=== PATIENT | female | born 1950 | race Caucasian/White ===

== ENCOUNTER 2019-09-13 09:50 | Outpatient (CLI) | payer SELFPAY ==
[~2019-09-13 09:50] MED LIST: AMLO5TAB PO
== END 2019-09-13 11:13 | disposition home or self-care (01) ==
LOC: WOUND CARE 09:50 → EDSTATUS 10:00 → WOUND CARE 11:13
PROVIDERS: ATTEND Nurse Practitioner Family
DX: I83.028 Varicose veins of left lower extremity with ulcer other part of lower leg (principal)
CPT/HCPCS: 29580

== ENCOUNTER 2019-09-20 09:45 | Day surgery (SDC) | payer SELFPAY ==
[2019-09-20] MEDS ORDERED: LIDOcaine 2% 5ml jelly ONE (10:08)
== END 2019-09-20 10:56 | disposition home or self-care (01) ==
LOC: WOUND CARE 09:45
PROVIDERS: ATTEND Nurse Practitioner Family
DX: I83.022 Varicose veins of left lower extremity with ulcer of calf (principal); I70.242 Atherosclerosis of native arteries of left leg with ulceration of calf; L97.222 Non-pressure chronic ulcer of left calf with fat layer exposed; I73.00 Raynaud's syndrome without gangrene; I10 Essential (primary) hypertension; M19.90 Unspecified osteoarthritis, unspecified site; F41.9 Anxiety disorder, unspecified; F17.299 Nicotine dependence, other tobacco product, with unspecified nicotine-induced disorders
CPT/HCPCS: 97597

== ENCOUNTER 2019-09-27 09:45 | Day surgery (SDC) | payer SELFPAY ==
[2019-09-27] MEDS ORDERED: LIDOcaine 2% 5ml jelly ONE (10:27)
== END 2019-09-27 11:27 | disposition home or self-care (01) ==
LOC: WOUND CARE 09:45
PROVIDERS: ATTEND Nurse Practitioner Family
DX: I70.242 Atherosclerosis of native arteries of left leg with ulceration of calf (principal); I83.022 Varicose veins of left lower extremity with ulcer of calf; L97.222 Non-pressure chronic ulcer of left calf with fat layer exposed; I73.00 Raynaud's syndrome without gangrene; I10 Essential (primary) hypertension; M19.90 Unspecified osteoarthritis, unspecified site; F41.9 Anxiety disorder, unspecified; F17.299 Nicotine dependence, other tobacco product, with unspecified nicotine-induced disorders
CPT/HCPCS: 36416; 82948; 97597

== ENCOUNTER 2019-10-04 10:43 | Day surgery (SDC) | payer SELFPAY ==
[2019-10-04] MEDS ORDERED: LIDOcaine 2% 5ml jelly ONE ×2 (11:10→11:37)
== END 2019-10-04 11:52 | disposition home or self-care (01) ==
LOC: WOUND CARE 10:43
PROVIDERS: ATTEND Nurse Practitioner Family
DX: I83.022 Varicose veins of left lower extremity with ulcer of calf (principal); I70.242 Atherosclerosis of native arteries of left leg with ulceration of calf; L97.222 Non-pressure chronic ulcer of left calf with fat layer exposed; I73.00 Raynaud's syndrome without gangrene; I10 Essential (primary) hypertension; M19.90 Unspecified osteoarthritis, unspecified site; F41.9 Anxiety disorder, unspecified; F17.299 Nicotine dependence, other tobacco product, with unspecified nicotine-induced disorders
CPT/HCPCS: 97597

== ENCOUNTER 2019-10-11 10:07 | Day surgery (SDC) | payer SELFPAY ==
[2019-10-11] MEDS ORDERED: LIDOcaine 2% 5ml jelly ONE (10:30)
== END 2019-10-11 11:14 | disposition home or self-care (01) ==
LOC: WOUND CARE 10:07
PROVIDERS: ATTEND Nurse Practitioner Family
DX: I83.022 Varicose veins of left lower extremity with ulcer of calf (principal); I70.242 Atherosclerosis of native arteries of left leg with ulceration of calf; L97.222 Non-pressure chronic ulcer of left calf with fat layer exposed; I73.00 Raynaud's syndrome without gangrene; I10 Essential (primary) hypertension; M19.90 Unspecified osteoarthritis, unspecified site; F41.9 Anxiety disorder, unspecified; F17.299 Nicotine dependence, other tobacco product, with unspecified nicotine-induced disorders
CPT/HCPCS: 97597

== ENCOUNTER 2019-10-18 10:05 | Day surgery (SDC) | payer SELFPAY ==
[2019-10-18] MEDS ORDERED: LIDOcaine 2% 5ml jelly ONE (10:17)
== END 2019-10-18 11:09 | disposition home or self-care (01) ==
LOC: WOUND CARE 10:05
PROVIDERS: ATTEND Nurse Practitioner Family
DX: I83.022 Varicose veins of left lower extremity with ulcer of calf (principal); I70.242 Atherosclerosis of native arteries of left leg with ulceration of calf; L97.222 Non-pressure chronic ulcer of left calf with fat layer exposed; I83.028 Varicose veins of left lower extremity with ulcer other part of lower leg; L97.821 Non-pressure chronic ulcer of other part of left lower leg limited to breakdown of skin; I73.00 Raynaud's syndrome without gangrene; I10 Essential (primary) hypertension; M19.90 Unspecified osteoarthritis, unspecified site; F41.9 Anxiety disorder, unspecified; F17.299 Nicotine dependence, other tobacco product, with unspecified nicotine-induced disorders
CPT/HCPCS: 97597

== ENCOUNTER 2019-10-25 10:54 | Day surgery (SDC) | payer SELFPAY ==
[2019-10-25] MEDS ORDERED: LIDOcaine 2% 5ml jelly ONE (11:50)
== END 2019-10-25 12:25 | disposition home or self-care (01) ==
LOC: WOUND CARE 10:54
PROVIDERS: ATTEND Nurse Practitioner
DX: I83.022 Varicose veins of left lower extremity with ulcer of calf (principal); I70.242 Atherosclerosis of native arteries of left leg with ulceration of calf; L97.222 Non-pressure chronic ulcer of left calf with fat layer exposed; I83.028 Varicose veins of left lower extremity with ulcer other part of lower leg; L97.821 Non-pressure chronic ulcer of other part of left lower leg limited to breakdown of skin; I73.00 Raynaud's syndrome without gangrene; I10 Essential (primary) hypertension; M19.90 Unspecified osteoarthritis, unspecified site; F41.9 Anxiety disorder, unspecified; F17.299 Nicotine dependence, other tobacco product, with unspecified nicotine-induced disorders
CPT/HCPCS: 97597

== ENCOUNTER 2019-11-01 08:48 | Day surgery (SDC) | payer SELFPAY ==
[2019-11-01] MEDS ORDERED: LIDOcaine 2% 5ml jelly ONE (10:09)
== END 2019-11-01 11:23 | disposition home or self-care (01) ==
LOC: WOUND CARE 08:48
PROVIDERS: ATTEND Nurse Practitioner
DX: I83.022 Varicose veins of left lower extremity with ulcer of calf (principal); I70.242 Atherosclerosis of native arteries of left leg with ulceration of calf; L97.222 Non-pressure chronic ulcer of left calf with fat layer exposed; I83.028 Varicose veins of left lower extremity with ulcer other part of lower leg; L97.821 Non-pressure chronic ulcer of other part of left lower leg limited to breakdown of skin; I73.00 Raynaud's syndrome without gangrene; I10 Essential (primary) hypertension; M19.90 Unspecified osteoarthritis, unspecified site; F41.9 Anxiety disorder, unspecified; F17.299 Nicotine dependence, other tobacco product, with unspecified nicotine-induced disorders
CPT/HCPCS: 97597

== ENCOUNTER 2019-11-08 09:54 | Day surgery (SDC) | payer SELFPAY | END 2019-11-08 10:55 | disposition home or self-care (01) | LOC: WOUND CARE 09:54 | PROVIDERS: ATTEND Nurse Practitioner | DX: I83.022 Varicose veins of left lower extremity with ulcer of calf (principal); I70.242 Atherosclerosis of native arteries of left leg with ulceration of calf; L97.222 Non-pressure chronic ulcer of left calf with fat layer exposed; I83.028 Varicose veins of left lower extremity with ulcer other part of lower leg; L97.821 Non-pressure chronic ulcer of other part of left lower leg limited to breakdown of skin; I73.00 Raynaud's syndrome without gangrene; I10 Essential (primary) hypertension; M19.90 Unspecified osteoarthritis, unspecified site; F41.9 Anxiety disorder, unspecified; F17.299 Nicotine dependence, other tobacco product, with unspecified nicotine-induced disorders | CPT/HCPCS: 97597 ==

== ENCOUNTER 2019-11-15 09:43 | Day surgery (SDC) | payer SELFPAY ==
[2019-11-15] MEDS ORDERED: LIDOcaine 2% 5ml jelly ONE (10:14)
== END 2019-11-15 10:44 | disposition home or self-care (01) ==
LOC: WOUND CARE 09:43
PROVIDERS: ATTEND Nurse Practitioner
DX: I83.022 Varicose veins of left lower extremity with ulcer of calf (principal); I70.242 Atherosclerosis of native arteries of left leg with ulceration of calf; L97.222 Non-pressure chronic ulcer of left calf with fat layer exposed; I83.028 Varicose veins of left lower extremity with ulcer other part of lower leg; L97.821 Non-pressure chronic ulcer of other part of left lower leg limited to breakdown of skin; I73.00 Raynaud's syndrome without gangrene; I10 Essential (primary) hypertension; M19.90 Unspecified osteoarthritis, unspecified site; F41.9 Anxiety disorder, unspecified; F17.299 Nicotine dependence, other tobacco product, with unspecified nicotine-induced disorders
CPT/HCPCS: 36416; 82948; 97597

== ENCOUNTER 2019-11-22 10:17 | Day surgery (SDC) | payer SELFPAY ==
[2019-11-22] MEDS ORDERED: LIDOcaine 2% 5ml jelly ONE (10:40)
== END 2019-11-22 11:02 | disposition home or self-care (01) ==
LOC: WOUND CARE 10:17
PROVIDERS: ATTEND Nurse Practitioner
DX: I83.028 Varicose veins of left lower extremity with ulcer other part of lower leg (principal); L97.821 Non-pressure chronic ulcer of other part of left lower leg limited to breakdown of skin; I83.022 Varicose veins of left lower extremity with ulcer of calf; I70.242 Atherosclerosis of native arteries of left leg with ulceration of calf; L97.222 Non-pressure chronic ulcer of left calf with fat layer exposed; I73.00 Raynaud's syndrome without gangrene; I10 Essential (primary) hypertension; M19.90 Unspecified osteoarthritis, unspecified site; F41.9 Anxiety disorder, unspecified; F17.299 Nicotine dependence, other tobacco product, with unspecified nicotine-induced disorders
CPT/HCPCS: 97597

== ENCOUNTER 2019-11-29 10:20 | Day surgery (SDC) | payer SELFPAY ==
[2019-11-29] MEDS ORDERED: LIDOcaine 2% 5ml jelly ONE (10:52)
== END 2019-11-29 11:27 | disposition home or self-care (01) ==
LOC: WOUND CARE 10:20
PROVIDERS: ATTEND Nurse Practitioner
DX: I83.028 Varicose veins of left lower extremity with ulcer other part of lower leg (principal); L97.821 Non-pressure chronic ulcer of other part of left lower leg limited to breakdown of skin; I83.022 Varicose veins of left lower extremity with ulcer of calf; I70.242 Atherosclerosis of native arteries of left leg with ulceration of calf; L97.222 Non-pressure chronic ulcer of left calf with fat layer exposed; I73.00 Raynaud's syndrome without gangrene; I10 Essential (primary) hypertension; M19.90 Unspecified osteoarthritis, unspecified site; F41.9 Anxiety disorder, unspecified; F17.299 Nicotine dependence, other tobacco product, with unspecified nicotine-induced disorders
CPT/HCPCS: 87070; 87075; 87077; 87102; 87186; 97597

== ENCOUNTER 2019-12-07 10:22 | Day surgery (SDC) | payer SELFPAY ==
[2019-12-07] MEDS ORDERED: LIDOcaine 2% 5ml jelly ONE (10:36)
== END 2019-12-07 11:06 | disposition home or self-care (01) ==
LOC: WOUND CARE 10:22
PROVIDERS: ATTEND Nurse Practitioner
DX: I83.028 Varicose veins of left lower extremity with ulcer other part of lower leg (principal); L97.821 Non-pressure chronic ulcer of other part of left lower leg limited to breakdown of skin; I83.022 Varicose veins of left lower extremity with ulcer of calf; I70.242 Atherosclerosis of native arteries of left leg with ulceration of calf; L97.222 Non-pressure chronic ulcer of left calf with fat layer exposed; I73.00 Raynaud's syndrome without gangrene; I10 Essential (primary) hypertension; M19.90 Unspecified osteoarthritis, unspecified site; F41.9 Anxiety disorder, unspecified; F17.299 Nicotine dependence, other tobacco product, with unspecified nicotine-induced disorders
CPT/HCPCS: 97597

== ENCOUNTER 2019-12-14 10:30 | Day surgery (SDC) | payer SELFPAY ==
[2019-12-14] MEDS ORDERED: LIDOcaine 2% 5ml jelly ONE (10:44)
== END 2019-12-14 11:50 | disposition home or self-care (01) ==
LOC: WOUND CARE 10:30
PROVIDERS: ATTEND Nurse Practitioner
DX: I83.028 Varicose veins of left lower extremity with ulcer other part of lower leg (principal); L97.821 Non-pressure chronic ulcer of other part of left lower leg limited to breakdown of skin; I83.022 Varicose veins of left lower extremity with ulcer of calf; I70.242 Atherosclerosis of native arteries of left leg with ulceration of calf; L97.222 Non-pressure chronic ulcer of left calf with fat layer exposed; I73.00 Raynaud's syndrome without gangrene; I10 Essential (primary) hypertension; M19.90 Unspecified osteoarthritis, unspecified site; F41.9 Anxiety disorder, unspecified; F17.299 Nicotine dependence, other tobacco product, with unspecified nicotine-induced disorders
CPT/HCPCS: 97597

== ENCOUNTER → 2020-01-25 | Day surgery (SDC) | payer SELFPAY ==
[~2020-01-25] MED LIST changes: +LIDOcaine 2% 5ml jelly ONE
== END | disposition home or self-care (01) ==
LOC: WOUND CARE 10:40
PROVIDERS: ATTEND Nurse Practitioner
DX: I83.028 Varicose veins of left lower extremity with ulcer other part of lower leg (principal); L97.822 Non-pressure chronic ulcer of other part of left lower leg with fat layer exposed; I83.022 Varicose veins of left lower extremity with ulcer of calf; I70.242 Atherosclerosis of native arteries of left leg with ulceration of calf; L97.222 Non-pressure chronic ulcer of left calf with fat layer exposed; I10 Essential (primary) hypertension; I73.00 Raynaud's syndrome without gangrene; M19.90 Unspecified osteoarthritis, unspecified site; F41.9 Anxiety disorder, unspecified; F17.299 Nicotine dependence, other tobacco product, with unspecified nicotine-induced disorders
CPT/HCPCS: 97597

== ENCOUNTER 2025-03-02 21:20 | Inpatient (IN) | payer MEDICARE ==
[~2025-03-02] VITALS: Ht 165.1 cm; Wt 108.0 kg
[~2025-03-02 21:20] MED LIST changes: -LIDOcaine 2% 5ml jelly ONE
[2025-03-02] MEDS ORDERED: vancomycin inj 1,000 MG in normal saline 250ml IV soln 250 ML IV STA (23:59)
--- NOTE | 2025-03-03 00:06 | Physician Documentation ---
History of Present Illness ~ General Chief Complaint: Multiple Medical Complaints Stated Complaint: LEG INFECTION Time Seen by MD: 23:51 Primary Medical Doctor: NONE History of Present Illness Initial Comments Patient presents to the emergency room with chief complaint of infection to bilateral lower extremities. Patient has been dealing with her lower extremity swelling pain and draining chronically however that has gotten worse over this past week. No fevers. Patient states she fell secondary to weakness tonight on her buttocks and denies any head strike but this was the impetus for her to call the ambulance as she does not believe she can care for herself at this juncture. Medication Reconciliation Allergies: Coded Allergies: corn (Unverified Allergy, Mild, 03/02/25) Penicillins (Verified Allergy, Unknown, 03/02/25) Sulfa (Sulfonamide Antibiotics) (Verified Allergy, Unknown, 03/02/25) Uncoded Allergies: EGGS (Allergy, Mild, 10/07/09) WHEAT (Allergy, Mild, 10/07/09) Scheduled Amlodipine Besylate (Amlodipine Besylate), 1 TABLET PO DAILY Past Medical History Past Medical History: Anxiety Past Surgical History: no surgical history Alcohol Use: None Drug Use: none Lives In: Home Occupation: employed Review of Systems ROS All review of systems negative except as per HPI Physical Exam Physical Exam Vital Signs: Source: Oral, Heart Rate: 95, Respiratory Rate: 16, BP: 142/72, Pulse Oximetry: 97, Weight: 109.000 Oxygen Flow Rate: 0 Physical Exam General: Patient is awake, alert, oriented x4 in no acute distress Head: Normocephalic and atraumatic. Eyes: Conjunctival normal. EOMI. PERRL. ENT: Mucous membranes moist. Neck: Supple, trachea is midline. Chest: Clear to auscultation bilaterally without rales, rhonchi, or wheezes. There is no accessory muscle use or retractions. Cardiac: RRR without murmurs, gallops, or rubs. Abd: Soft, nondistended, nontender, with normoactive bowel sounds. No guarding, rebound, or rigidity. Extremities: Foul smelling cellulitis to bilateral lower extremities noted. Progress Results/Orders Results/Orders Orders - KAILASH LE MD Electrocardiogram (03/02/25 23:54) MG (03/02/25 23:54) Culture Blood (03/02/25 23:54) Chest,Single View (03/02/25 23:54) BMP (03/02/25 23:54) Dressing Orders (03/03/25 00:06) Page Hospitalist (03/03/25 01:03) Fill Out Med Reconciliation (03/03/25 01:03) Hgb A1c (03/03/25 00:09) Lipid Panel (03/03/25 00:09) Liver Panel (03/03/25 00:09) PBNP (03/03/25 00:09) Completed Orders - KAILASH LE MD Cbc/Diff (03/02/25 23:54) Chest,Single View (03/02/25 23:54) Procalcitonin (03/02/25 23:54) Lacticsepsis (03/02/25 23:54) Vancomycin Inj (Vancomycin Inj) (03/02/25 23:59) Ciprofloxacin Lact 400mg/200ml (Ciproflo (03/03/25 00:00) Vancomycin/Ns 1 Gm Add-Wisner (Vancomyc (03/03/25 00:05) Bacitracin Ointment (Bacitracin Ointment (03/03/25 00:10) Normal Saline 1000ml (0.9% Sodium Chlori (03/03/25 01:05) Sodium Chloride Tablet (Sodium Chloride (03/03/25 01:05) Ondansetron Inj. (Zofran 4mg/2ml Vial) (03/03/25 01:05) Medications Received in ER Medications (Trade) Dose Ordered Sig/Juan David Route PRN Reason Start Time Stop Time Status Last Admin Dose Admin Vancomycin HCl 250 ml @ 166 mls/hr ONCE ONCE IV 03/03/25 00:05 03/03/25 01:35 DC 03/03/25 02:07 166 MLS/HR (bacitracin ointment) 1 applic ONCE ONCE TP 03/03/25 00:10 03/03/25 00:13 DC 03/03/25 01:52 1 APPLIC Sodium Chloride 1,000 ml @ 1,000 mls/hr ONCE ONCE IV 03/03/25 01:05 03/03/25 02:04 DC 03/03/25 02:07 1,000 MLS/HR (sodium chloride tablet) 1 gm ONCE ONCE PO 03/03/25 01:05 03/03/25 01:06 DC 03/03/25 01:52 1 GM (Zofran 4mg/2ml vial) 4 mg ONCE ONCE IV 03/03/25 01:05 03/03/25 01:06 DC 03/03/25 02:07 4 MG Vital Signs 03/02/25 21:42 Pulse 95 Resp 16 B/P (MAP) 142/72 Pulse Ox 97 O2 Flow Rate 0 Laboratory Tests Test 03/03/25 00:09 White Blood Count 19.0 H Red Blood Count 3.82 L Hemoglobin 13.7 Hematocrit 39.6 Mean Corpuscular Volume 103.8 H Mean Corpuscular Hemoglobin 35.8 H Mean Corpuscular Hemoglobin Concent 34.5 Red Cell Distribution Width 14.8 H Platelet Count 393 Mean Platelet Volume 7.9 Neutrophils (%) (Auto) 94.1 H Lymphocytes (%) (Auto) 3.0 L Monocytes (%) (Auto) 2.7 Eosinophils (%) (Auto) 0 Basophils (%) (Auto) 0.2 Neutrophils # (Auto) 17.9 H Lymphocytes # (Auto) 0.6 L Monocytes # (Auto) 0.5 Eosinophils # (Auto) 0.0 Basophils # (Auto) 0.0 CBC Comment Sodium Level 119 *L Potassium Level 6.0 *H Chloride Level 86 L Carbon Dioxide Level 16.8 L Anion Gap 16 Blood Urea Nitrogen 79 H Creatinine 4.12 H Estimated GFR/1.73 m2 11 BUN/Creatinine Ratio 19.2 Glucose Level 113 H Osmolality 282 Lactic Acid Level 1.5 Calcium Level 8.8 Magnesium Level 2.5 H Troponin I High Sensitivity 123 *H Albumin 2.5 L Procalcitonin 2.40 H Chemistry Comments Microbiology Date/Time Source Procedure Growth Status 03/03/25 00:21 Blood Arm Left Blood Culture - Preliminary NEGATIVE (LESS THAN 24 HOURS) Resulted EKG/XRAY/CT/US/VASC/MRI EKG : Additional Comment EKG interpreted by myself shows time of 002, rate 97, sinus rhythm, normal axis, no ST changes Medical Decision Making Findings Patient presents to the emergency room with bilateral lower extremity pain. Differentials include but are not limited to cellulitis, peripheral neuropathy, fungal infection, DVT. significant cellulitis to both lower extremities and we will admit for treatment. I do not suspect DVT is patient's symptoms are bilateral. Significant cellulitis with significant elevation of white blood cell count and procalcitonin. Patient has a greenish tinge to her wounds and I do believe she is suffering from Pseudomonas therefore Cipro initiated along with vancomycin to cover for MRSA. He had not suspect necrotizing fasciitis given time of onset. Patient is also suffering from acute kidney injury resulting in emergent hyperkalemia and hyponatremia. Departure Admitted to Inpatient Unit: yes, to hospitalist Impression: Primary Impression: Cellulitis Additional Impressions: Weakness Fall Condition: Guarded Referrals: NO PRIMARY CARE PROVIDER (PCP) Signature Scribe Signature: No scribe Attestation: The note accurately reflects work and decisions made by me.Kailash Le MD 03/03/25 00:05 KAILASH LE MD Mar 03, 2025 00:06
--- NOTE | 2025-03-03 00:34 | RADIOLOGY REPORT ---
CHEST RADIOGRAPH Indication: SEPSIS Technique: 1 view Comparison: None FINDINGS: Lines and Tubes: None. Lungs/Pleura: No focal consolidation, pleural effusion or pneumothorax. Cardiomediastinum: Heart size within normal limits for technique. Aortic atherosclerosis. Other: No acute osseous abnormality. IMPRESSION: 1. No acute cardiopulmonary abnormality.
[2025-03-03 00:35] LABS: MEAN PLATELET VOLUME 7.9 FL (7.4-10.4); RED CELL DISTRIBUTION WIDTH 14.8 % (11.5-14.5)
[2025-03-03 00:43] LABS: CREATININE 4.12 MG/DL (0.40-0.90); TOTAL CARBON DIOXIDE 16.8 MMOL/L (24-32); eCRCL 11 ML/MIN; eGFR 11 ML/MIN
[2025-03-03] MEDS: bacitracin 15gm ointment TP ONE (01:52)
[2025-03-03] MEDS ORDERED: magnesium sulf-water 2g/50mL 50 ML IV PRN (01:55)
[2025-03-03] MEDS ORDERED: potassium Cl 20 mEq SR tablet PO PRN ×2 (01:55)
[2025-03-03] MEDS ORDERED: magnesium hydroxide 30ml (MOM) UD suspension PO PRN (01:55)
[2025-03-03] MEDS ORDERED: potassium Cl 40MEQ/1/2NS 520ml 520 ML IV PRN (01:55)
[2025-03-03] MEDS ORDERED: magnesium Cl slow-release 64mg tablet PO PRN (01:55)
[2025-03-03] MEDS ORDERED: magnesium sulf-water 4G/100mL 100 ML IV PRN (01:55)
[2025-03-03] MEDS ORDERED: mag hydrox/Alum hydrox/simeth 30ml oral suspension PO PRN (01:55)
[2025-03-03] MEDS: ondansetron/PF 4mg/2ml inj IV ONE (02:07)
[2025-03-03] MEDS: normal saline 1000ml 1,000 ML IV ONE (02:07)
[2025-03-03] MEDS: vancomycin/NS 1 GM ADD-VANTAGE 250 ML IV ONE (02:07)
--- NOTE | 2025-03-03 02:22 | HISTORY AND PHYSICAL-Residence ---
History & Physical Providers to CC Resident Creating Document: MARYANNEJOSETTEPIERRE ~ History of Present Illness Primary Medical Doctor: NONE Reason for Admit\Complaint: Extensive cellulitis History of Present Illness This is a 74-year-old female who presents to the ER with rapidly progressive pain, erythema, and purulent discharge in both lower extremities. She has a history of chronic nonhealing leg ulcers that were previously small in size. However, over the past few weeks, these ulcers have increased substantially in size, and during the last week have become associated with purulent, malodorous greenish discharge, severe tenderness to palpation, intermittent claudication, and redness extending from the dorsal feet up to the knees. She denies fever, chills, nausea, or vomiting, but reports weakness, poor oral intake, and decreased urine output. No chest pain or respiratory symptoms are reported. Allergies: Coded Allergies: corn (Unverified Allergy, Mild, 03/02/25) Penicillins (Verified Allergy, Unknown, 03/02/25) Sulfa (Sulfonamide Antibiotics) (Verified Allergy, Unknown, 03/02/25) Uncoded Allergies: EGGS (Allergy, Mild, 10/07/09) WHEAT (Allergy, Mild, 10/07/09) Home Medications Home Medications Active Amlodipine Besylate 5 Mg Tablet 1 Tablet PO DAILY Past Medical History Past Medical History Chronic nonhealing wound in the left leg Chronic lymphedema Hypertension Peripheral artery disease Prediabetes Depression Anxiety Past Surgical History Surgical History Comment Left leg stent 4 years ago Past Social History Smoking: Less than 1 pack/day (Patient is smoking 2-3 cigarettes daily recently. She used to smoke half pack a day before.) Alcohol Use: Heavy Drug Use: None Lives with: Alone Lives In: Home Occupation: employed, retired ROS Constitutional: Reports: malaise, weakness Eyes: Reports: no symptoms reported ENT: Reports: no symptoms reported Respiratory: Reports: no symptoms reported Cardiovascular: Reports: no symptoms reported Gastrointestinal: Reports: poor appetite Genitourinary: Reports: no symptoms reported Female Genitalia: Reports: no reported symptoms Neurological: Reports: no symptoms reported Musculoskeletal: Reports: pain, joint pain Integumentary: Reports: lesions, wound(s), change in color Allergic/Immunologic: Reports: no symptoms reported Hematologic/Lymphatic: Reports: no symptoms reported Endocrine: Reports: no symptoms reported Psychiatric: Reports: no symptoms reported Exam Vitals: Vital Signs Date Time Temp Pulse Resp B/P (MAP) Pulse Ox O2 Delivery O2 Flow Rate FiO2 03/02/25 21:42 95 16 142/72 97 0 General: General: Awake and Alert, acute distress due to pain HEENT: Conjunctiva pink, Sclera clear, Mucus Membranes dry Neck: Supple without masses and tenderness. Resp: Tachypneic. Diminished air movement bilaterally. Lungs clear to auscultation bilaterally. Heart: Regular Rate and rhythm, normal S1 and S2 without murmur, rub or gallop. Abdomen: Soft, distended, nontender, normal bowel sounds, no guarding or rebound, no organomegaly Extremities: 3+ pitting bilateral lower extremity edema. Distal pulses significantly decreased, possibly due to subcutaneous edema. Extensive leg ulcers with copious purulent, malodorous greenish discharge, associated with marked erythema, warmth, and tenderness to palpation. Skin: Warm and dry. Neurologic: Awake, alert, and oriented. Normal speech. Cranial nerves IIXII intact. Strength 5/5 in all extremities, normal tone and reflexes, Babinski absent. Coordination intact on finger-nose testing Diagnostic Data Last Recorded Lab Results: 03/03/25803/03/258 Counseling Services Smoking & Tobacco Cessation: 3-10 Minutes Advance Care Planning Advanced Care plannin - 30 Minutes (Advanced care directives were discussed. Patient requests full code status.) Additional Plan Assessment 74-year-old female patient who presents for severe leg pain, infected ulcers with erythema, tenderness to palpation any purulent discharge. 1. Sepsis secondary to extensively infected leg ulcers with superimposed cellulitis Chronic nonhealing leg ulcers increasing size for the past four weeks Abrupt worsening for the past week with excruciating pain, copious purulent discharge and increasing erythema WBC 19, procalcitonin 2.4, ESR 75, lactic acid 1.5 Pain may be multifactorial - ischemic from PAD and infections from spreading cellulitis Plan 1500mL normal saline bolus Giving penicillin allergy, started IV ciprofloxacin for Pseudomonas coverage, clindamycin for anaerobes and vancomycin for MRSA Obtained blood culture and wound culture MRI of legs to assess for possible osteomyelitis. Venous ultrasound to rule out DVT. Wound care consult requested. Surgery consult for possible debridement pending 2. Acute kidney injury, possibly to acute tubular necrosis in the setting of sepsis 3. Severe hypokalemia and hyponatremia, most likely related to MYRNA Cr 4.12 (baseline 0.66), BUN 79, BUN/Cr ratio 19.2., Na 119 Plan: IV hydration with normal saline at 125 mL/hr. Start Lokelma for hyperkalemia (K 6.0). Ordered urinalysis with microscopy to access for granular casts Ordered urine electrolytes, repeat CMP in 4 hours. Monitor on telemetry; no need for over-correction of sodium Nephrology consult pending. 4. Type 2 myocardial infarction Most likely from demand ischemia related to sepsis No chest pain or shortness of breath. Troponin 123, BNP 4688. Plan: Continue aspirin and atorvastatin. Ordered echocardiogram and repeat troponin. 5. Hypertension 6. Prediabetes 7. Peripheral artery disease, history of left left stent A1c 6.4, LDL 61. Distal pulses decreased bilaterally, possibly due to edema. History of left leg stent placement four years ago. Plan: Continue aspirin and atorvastatin. Order arterial ultrasound of lower extremities 8. Anxiety 9. Depression Continue home medication after med reconciliation Code Status: Full code DVT prophylaxis: Heparin Analgesia/sedation: Morphine/Tamar[place] Line/tube: PIV GI prophylaxis: None Nutrition: Heart healthy diet Prognosis: Guarded Physical therapy: Ordered Disposition: Admit to ortho floor with telemetry. Pending leg MRI and echocardiogram. Pending Surgery and Nephrology consult. Pending med reconciliation. Resident MD attestation The above note has been reviewed and supervised by a senior resident PGY2/PGY3 Patient was seen, examined and discussed with the attending physician Plan reviewed with bedside team. Patient seen through remote audiovisual assessment through HIPAA compliant setup. All labs, flowsheets, and images reviewed Cumulative nonprocedural care time spent in directed patient care = 30 min Date of Service: Mar 03, 2025 Billing Provider: MAGALI RECINOS MD, LUCAS, PIERRE Mar 03, 2025 02:22 MAGALI RECINOS MD Mar 03, 2025 07:33
[2025-03-03 02:44] LABS: PRO BRAIN NATRIURETIC PEPTIDE 4688 PG/ML (0-125)
[2025-03-03 02:45] LABS: CHOL/HDL RATIO 3.8 (0.00-4.99); LDL CHOLESTEROL 61 MG/DL (50-100)
[2025-03-03] MEDS: PERFLUTREN PROTEIN-A MICROSPHR (Optison) 0.22 MG/ML 3ML VIAL IV ONE (02:50)
[2025-03-03 03:17] LABS: PHOSPHORUS 7.0 MG/DL (2.3-4.5)
[2025-03-03] MEDS: ciprofloxacin lact 400MG/200ML 200 ML IV SCH (04:06)
[2025-03-03] MEDS: SODIUM ZIRCONIUM CYCLOSILICATE 10 GM POWD.PACK ONE (04:07)
[2025-03-03] MEDS: SODIUM ZIRCONIUM CYCLOSILICATE 10 GM POWD.PACK PO SCH ×2 (04:07→22:08)
[2025-03-03] MEDS: ciprofloxacin lact 400MG/200ML 200 ML IV ONE (04:08)
[2025-03-03] MEDS: normal saline 500ml IV soln 500 ML IV ONE (04:10)
[2025-03-03] MEDS: HYDROcodone/acetaminophen 5mg/325mg tablet PO PRN (04:14)
[2025-03-03] MEDS: normal saline 1000ml 1,000 ML IV SCH (06:00)
--- NOTE | 2025-03-03 06:15 | ELECTROCARDIOGRAPH REPORT ---
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
[2025-03-03] MEDS ORDERED: levoFLOXACIN-Levaquin 500mg/D5 100 ML IV SCH (08:00)
[2025-03-03] MEDS: K and/or MAG REPLACEMENT MC SCH (08:00)
[2025-03-03] MEDS ORDERED: ciprofloxacin lact 400MG/200ML 200 ML IV SCH (08:00)
[2025-03-03] MEDS ORDERED: SODIUM ZIRCONIUM CYCLOSILICATE 10 GM POWD.PACK PO SCH (08:00)
[2025-03-03] MEDS: docusate sod 100mg capsule PO SCH (08:00)
[2025-03-03] MEDS ORDERED: cefepime inj. 0.5 GM in normal saline 100ml IV soln 100 ML IV SCH (08:25)
[2025-03-03] MEDS: aspirin 81mg, enteric-coated 1 TAB TABLET.DR PO SCH (08:37)
[2025-03-03] MEDS: heparin, porcine 5000 units/ml vial SQ SCH (08:37)
[2025-03-03] MEDS ORDERED: AMLO10TA13 PO (08:52)
[2025-03-03] MEDS ORDERED: RIVA20TA PO (08:52)
[2025-03-03] MEDS ORDERED: METO-384 PO (08:52)
[2025-03-03 09:17] LABS: CREATININE 3.22 MG/DL (0.40-0.90); eCRCL 14 ML/MIN; eGFR 14 ML/MIN
[2025-03-03 09:23] LABS: TOTAL CARBON DIOXIDE 15.0 MMOL/L (24-32)
[2025-03-03] MEDS: HYDROcodone/acetaminophen 10/325mg tab PO PRN (10:25)
[2025-03-03 10:26] LABS: MEAN PLATELET VOLUME 7.8 FL (7.4-10.4); RED CELL DISTRIBUTION WIDTH 15.2 % (11.5-14.5)
[2025-03-03] MEDS: linezolid 600mg/300ml PREMIX 300 ML IV SCH (10:29)
[2025-03-03 10:41] LABS: OSMOLALITY 286 MOSM/K (280-300)
[2025-03-03 10:45] LABS: CREATININE 3.23 MG/DL (0.40-0.90); TOTAL CARBON DIOXIDE 15.6 MMOL/L (24-32); eCRCL 14 ML/MIN; eGFR 14 ML/MIN
--- NOTE | 2025-03-03 11:44 | VASCULAR REPORT ---
BILATERAL Lower Extremity Arterial Duplex Date: 03/03/2025 10:11 AM Clinical History: PAD Comparison: VASC VL VENOUS on DOS: 03/03/25, VASC VL VENOUS on DOS: 02/04/23, VL VENOUS on DOS: 10/09/21, VL ARTERIAL on DOS: 09/24/21, VL VENOUS on DOS: 09/24/21 Technique: Duplex Doppler evaluation including color Doppler and spectral/pulsed waveform analysis of the lower extremity arteries was performed. Finding: VELOCITY AND DOPPLER WAVEFORM ANALYSIS RIGHT cm/se Waveform Severity LEFT cm/se Waveform Severity c c dCFA 195.5 Monophasic dCFA 212.4 [place] Monophasic Prof Fem 125.3 Monophasic Prof Fem 191.5 Monophasic Art. Art. Fem Art 200.9 Monophasic Fem Art 223.2 Monophasic Severe >80% Prox. Prox. Fem Art 125.3 Monophasic Fem Art 145.3 Monophasic Severe>80% Mid. Mid. Fem Art 166.8 Monophasic Fem Art Occluded Occluded Dist. Dist. Pop Art(AK) 109.3 Monophasic Pop Art(AK) Occluded Occluded Pop Art(BK) 103.7 Monophasic Pop Art(BK) 63.9 Monophasic AUTOMATIC PROFILE SANDER OPERATOR Dist. 74.9 Monophasic AUTOMATIC PROFILE SANDER OPERATOR Dist. 25.8 Monophasic DPA 111.3 Monophasic DPA CONCLUSION Monophasic throughout bilaterally. Left CORPORATE ACCOUNT EXECUTIVE waveform boarderline monophasic. Bilateral CORPORATE ACCOUNT EXECUTIVE, Right SFA elevated velocity. Indicating possible inflow disease. Left SFA Prox 50-79% stenosis. Left SFA mid >80% stenosis. Left SFA distal stent visualized, no flow seen throughout Left SFA distal or Proximal Pop. Distal Pop recannalized via collaterals. Bilateral NU, Peroneal, Left DPA not vis due to wounds and dressing. No LYRIC due to pain and wounds.
--- NOTE | 2025-03-03 11:45 | VASCULAR REPORT ---
Bilateral lower extremity venous duplex Clinical History: eedema Comparison: VASC VL VENOUS on DOS: 02/04/23, VL VENOUS on DOS: 10/09/21, VL VENOUS on DOS: 09/24/21 Technique: Duplex Doppler evaluation of the deep venous systems of both lower extremities from the common femoral veins to the popliteal veins including color Doppler and spectral/pulsed waveform analysis was performed. Findings: Vein Imaging (Right) CFV (R): Compressible, Spontaneous, Respirophasic, Augmentation Reflux: ms SFJ (R): Compressible, Spontaneous, Respirophasic, Augmentation Reflux: ms FEM (R): Compressible, Spontaneous, Respirophasic, Augmentation Reflux: ms POP (R): Compressible, Spontaneous, Respirophasic, Augmentation Reflux: ms DFV (R): Compressible, Spontaneous, Respirophasic, Augmentation Reflux: ms PTV (R): Compressible, Spontaneous, Respirophasic, Augmentation Reflux: ms GSV (R): Compressible, Spontaneous, Respirophasic, Augmentation Peroneals (R): Compressible, Spontaneous, Respirophasic, Augmentation Reflux: ms Reflux: ms Vein Imaging (Left) CFV (L): Compressible, Spontaneous, Respirophasic, Augmentation Reflux: ms SFJ (L): Compressible, Spontaneous, Respirophasic, Augmentation Reflux: ms FEM (L): Compressible, Spontaneous, Respirophasic, Augmentation Reflux: ms POP (L): Compressible, Spontaneous, Respirophasic, Augmentation Reflux: ms DFV (L): Compressible, Spontaneous, Respirophasic, Augmentation Reflux: ms PTV (L): Compressible, Spontaneous, Respirophasic, Augmentation Reflux: ms GSV (L): Compressible, Spontaneous, Respirophasic, Augmentation Reflux: ms Peroneals (L): Compressible, Spontaneous, Respirophasic, Augmentation Reflux: ms CONCLUSION No sonographic evidence of deep vein thrombosis to bilateral lower extremity. Normal compressible veins with respirophasic flow and good augmentation throughout bilateral leg.
[2025-03-03] MEDS ORDERED: heparin 10,000 units/1 ML INJ IV PRN (12:20)
[2025-03-03] MEDS: furosemide 10 MG/1 ML 10ml inj IV SCH (12:41)
[2025-03-03] MEDS: heparin 10,000 units/1 ML INJ IV ONE (12:50)
[2025-03-03] MEDS: heparin 25,000 UNIT/250ml bag 250 ML IV PRN (12:51)
[2025-03-03] MEDS: MESSAGE TO NURSING IV ONE (12:52)
--- NOTE | 2025-03-03 13:45 | CONSULTATION REPORT - RESIDENT ---
Consult Providers to CC Resident Creating Document: GOLDENBIJAL ELI RES History of Present Illness Reason for Admit\Complaint: Cellulitis History of Present Illness This is a 74-year-old female with a history of HTN, PAD, DM, chronic lymphedema, chronic nonhealing wound in the left leg came to ER with rapidly progressive pain, erythema, and purulent discharge in both lower extremities. The nephrology team has been consulted for acute kidney injury. He denies any previous history of any kidney disease. Reports decrease in the urine output. Reports using NSAIDs Advil up to three a day. No history of any cardiac issues. No recent nausea, vomiting. She was given 1.5 L bolus with NS@ 125 mL/hour for sepsis protocol. Labs at the time of admission showed creatinine of 3.23, BUN 78, sodium 119, potassium 6.0, bicarb 16.8. She was given 1.5 L bolus with NS@ 125 mL/hour. Recommended to stop iv fluids and maintain fluid restriction. Allergies: Coded Allergies: corn (Unverified Allergy, Mild, 03/02/25) Penicillins (Verified Allergy, Unknown, 03/02/25) Sulfa (Sulfonamide Antibiotics) (Verified Allergy, Unknown, 03/02/25) Uncoded Allergies: EGGS (Allergy, Mild, 10/07/09) WHEAT (Allergy, Mild, 10/07/09) Home Medications Home Medications Active Amlodipine Besylate 5 Mg Tablet 1 Tablet PO DAILY Reported Xarelto (Rivaroxaban) 20 Mg Tablet 1 Tab PO DAILY Amlodipine Besylate 10 Mg Tablet 1 Tab PO DAILY Metoprolol Succinate 50 Mg Tab.sr.24h 1 Tab PO DAILY Past Medical History Past Medical History Chronic nonhealing wound in the left leg Chronic lymphedema Hypertension Peripheral artery disease Prediabetes Depression Anxiety Past Surgical History Surgical History Comment Left leg stent 4 years ago Past Social History Social History Comment Smoking: Less than 1 pack/day (Patient is smoking 2-3 cigarettes daily recently. She used to smoke half pack a day before.) Alcohol Use: Heavy Drug Use: None Lives with: Alone Lives In: Home Occupation: employed, retired Exam Vitals: Vital Signs Date Time Temp Pulse Resp B/P (MAP) Pulse Ox O2 Delivery O2 Flow Rate FiO2 03/03/25 11:30 86 18 134/57 (82) 99 0 03/03/25 00:00 97.9 General: General: Awake and Alert, acute distress due to pain HEENT: Conjunctiva pink, Sclera clear, Mucus Membranes dry Neck: Supple without masses and tenderness. Resp: Tachypneic. Diminished air movement bilaterally. Lungs clear to auscultation bilaterally. Heart: Regular Rate and rhythm, normal S1 and S2 without murmur, rub or gallop. Abdomen: Soft, distended, nontender, normal bowel sounds, no guarding or rebound, no organomegaly Extremities: 3+ pitting bilateral lower extremity edema. Distal pulses significantly decreased, possibly due to subcutaneous edema. Extensive leg ulcers with copious purulent, malodorous greenish discharge, associated with marked erythema, warmth, and tenderness to palpation. Skin: Warm and dry. Neurologic: Awake, alert, and oriented. Normal speech. No focal nuerological deficits. Diagnostic Data Last Recorded Lab Results: 03/03/25 10003/03/25 100 Additional Plan Assessment This is a 74-year-old female with a history of HTN, PAD, DM, chronic lymphedema, chronic nonhealing wound in the left leg came to ER with rapidly progressive pain, erythema, and purulent discharge in both lower extremities. Was admitted and being managed for cellulitis The nephrology team has been consulted for acute kidney injury. He denies any previous history of any kidney disease. Reports decrease in the urine output. Reports using NSAIDs Advil up to three a day. No history of any cardiac issues. No recent nausea, vomiting. She was given 1.5 L bolus with NS@ 125 mL/hour for sepsis protocol. Labs at the time of admission showed creatinine of 3.23, BUN 78, sodium 119, potassium 6.0, bicarb 16.8. She was given 1.5 L bolus with NS@ 125 mL/hour. Recommended to stop iv fluids and maintain fluid restriction. Hypervolemic hyponatremia Patient has a sodium 119. Creatinine is 3.2 indicating renal dysfunction, likely renal failure associated hypervolemic hyponatremia. In renal failure kidneys can not excrete watery effectively, additionally giving high volumes of normal saline, probably lead to worsening edema and dilutional hyponatremia. Fluid restriction, 1.5 L/day Stop IV fluids, use Lasix as needed. Close monitoring BMP Avoid over-correction, 6-8/day. Patient denies any history of heart failure, echocardiogram ordered please follow up. MYRNA Hyperkalemia, non-anion gap metabolic acidosis Baseline kidney function is not known MYRNA Could be secondary to sepsis from cellulitis. Creatinine was 4.12 at the time of admission improved to 3.23 with the IV fluids Potassium was 6.0, improved and then got worse, 5.8 likely secondary to MYRNA Acidosis likely secondary to underlying cellulitis and MYRNA Plan Lokelma 10 g t.i.d. 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
[2025-03-03 15:03] LABS: INR 1.4 INR
[2025-03-03 15:11] LABS: APTT > 139 SECONDS (22-32)
[2025-03-03 15:55] LABS: CREATININE 2.86 MG/DL (0.40-0.90); TOTAL CARBON DIOXIDE 18.0 MMOL/L (24-32); eCRCL 16 ML/MIN; eGFR 16 ML/MIN
[2025-03-03 18:15] LABS: CREATININE 2.78 MG/DL (0.40-0.90); TOTAL CARBON DIOXIDE 18.5 MMOL/L (24-32); eCRCL 16 ML/MIN; eGFR 17 ML/MIN
[2025-03-03] MEDS ORDERED: morphine 4 MG/ML inj SYRINge IV PRN (19:29)
--- NOTE | 2025-03-03 19:32 | RADIOLOGY REPORT ---
INDICATION: renal failure TECHNIQUE: Multiple real-time sonographic images of the kidneys and bladder were obtained. COMPARISON: None FINDINGS: Slightly limited visualization due to acoustic windows. The right kidney measures 9.9 cm in length, which is normal in size. There is normal echogenicity of the right kidney. No hydronephrosis. The left kidney measures cm in length, which is normal in size. There is normal echogenicity of the left kidney. No hydronephrosis. No large intraluminal masses are seen in the bladder. Prior to voiding the bladder volume measures volume 390 cc. IMPRESSION: 1. Normal sonographic appearance of the kidneys. No hydronephrosis.
[2025-03-03] MEDS: morphine 4 MG/ML inj SYRINge IV PRN (19:44)
[2025-03-03] MEDS: ondansetron/PF 4mg/2ml inj IV PRN (19:44)
[2025-03-03] MEDS ORDERED: furosemide 10 MG/1 ML 10ml inj IV SCH (20:00)
[2025-03-03 21:15] VITALS: BP 128/65; PULSE 96; RESP 18; TEMP 97.7; O2SAT 97
--- NOTE | 2025-03-03 21:35 | RADIOLOGY REPORT ---
EXAM: MR MRI LOWER EXTREMITY LEFT INDICATION: Chronic infected ulcers bilaterally TECHNIQUE: Multiplanar, multisequence imaging of the left ankle without contrast COMPARISON: MR MRI LOWER EXTREMITY RIGHT on DOS: 03/03/25 FINDINGS: BONES: No MR evidence of an acute fracture, osseous contusion, or aggressive focal osseous lesion. no MR evidence of osteomyelitis. Subchondral versus intraosseous ganglion cysts of the anterior aspect of the calcaneus. MUSCLES: Normal signal intensity and morphology. TENDONS: Intact. LIGAMENTS: Intact. JOINT SPACES: No joint effusion. NEUROVASCULAR: Normal. OTHER: Subcutaneous tissue edema. Posterior calcaneal tuberosity spurring. IMPRESSION: 1. No MR evidence of osteomyelitis. 2. Extensive surrounding subcutaneous adipose tissue edema and skin thickening. No drainable fluid collection. No tibiotalar joint effusion.
--- NOTE | 2025-03-03 21:38 | RADIOLOGY REPORT ---
EXAM: MR MRI LOWER EXTREMITY RIGHT INDICATION: Chronic infected ulcers bilaterally TECHNIQUE: Multiplanar, multisequence imaging of the right ankle without contrast COMPARISON: MR MRI LOWER EXTREMITY LEFT on DOS: 03/03/25 FINDINGS: BONES: No MR evidence of an acute fracture, osseous contusion, or aggressive focal osseous lesion. in regards to the clinical question, no definitive MR evidence of osteomyelitis based on inversion recovery images. Areas of artifact on proton density fat saturated sequences. Posterior calcaneal tuberosity spurring. MUSCLES: Normal signal intensity and morphology. TENDONS: Intact. LIGAMENTS: Intact. JOINT SPACES: No joint effusion. NEUROVASCULAR: Normal. OTHER: Surrounding subcutaneous tissue edema and skin thickening, to a lesser degree than the contralateral left lower extremity/ankle. No drainable fluid collection. IMPRESSION: 1. No MR evidence of osteomyelitis. 2. Surrounding subcutaneous adipose tissue edema and skin thickening. 3. No joint effusion.
--- NOTE | 2025-03-03 22:44 | CONSULTATION ---
DATE OF CONSULTATION: 03/03/2025 DICTATING PHYSICIAN: CHRISTY KING DO CHIEF COMPLAINT: Left lower leg pain/foot pain. HISTORY OF PRESENT ILLNESS: This 74-year-old woman presented to the Emergency Room with complaints of left lower leg and foot pain that has been severe and present for approximately 1 week. She does notice that the discomfort is less severe when her legs are dangling, but when she is lying supine, the pain seems to be most severe. She has known peripheral vascular disease and according to her, she has had a stent placed to the left SFA by Dr. Shaw approximately 4 years ago. A vascular ultrasound today reported monophasic waveforms in both common carotids. The right superficial femoral artery apparently was not interrogated, but the left SFA demonstrated a 50-79% proximal stenosis, a greater than 80% mid stenosis, and the distal SFA was found to be occluded in the area of the stent. There also appeared to be collaterals into the distal-most SFA and popliteal artery. According to the report, both anterior tibial arteries, peroneal, and the left dorsalis pedis artery were not visualized due to wounds and dressing. She, in fact, has been troubled by bilateral chronic lower extremity and foot swelling, and by cellulitis with frequent blistering. She is currently taking clindamycin and a second antibiotic, which at this time she could not recall. There have been blood cultures drawn which preliminarily report gram-negative rods. According to the patient, her lower extremity edema issues have been present for approximately 1 year. ALLERGIES: PENICILLIN AND SULFA MANIFESTED A RASH AND HIVES. PAST MEDICAL HISTORY: Other medical problems include what she describes as prediabetes. She is also taking lower dose amlodipine and metoprolol for hypertension. SURGERIES: None recent. MEDICATIONS: Include Wellbutrin (to aid in curbing her tendency to smoke), Xarelto, amlodipine, and metoprolol. SOCIAL HISTORY: She has smoked for approximately 50 years, averaging 3/4 to 1 pack per day. She enjoys a frequent mixed drink using vodka and water. REVIEW OF SYSTEMS: ALLERGIES: No known nasal problems requiring courses of antibiotics. PULMONARY: With light activity around the house, she is not dyspneic and does not have orthopnea or PND. CARDIAC: She denies any chest pain, dizziness, or fainting. ENDOCRINE: Diabetes as noted. No history of hyper or hypothyroidism. DERMATOLOGIC: No unexplained rashes. HEENT: No history for frequent episodes of epistaxis. GASTROINTESTINAL: No history for esophageal reflux, peptic ulcers, or GI bleeding. HEMATOLOGIC: No recent history for anemia. NEUROLOGIC: No history for CVA or seizure disorder. OPHTHALMOLOGIC: No permanent defects in her visual pate. GENITOURINARY: She denies frequent urinary tract infections or problems with nephrolithiasis. PHYSICAL EXAMINATION: GENERAL: She is markedly overweight. HEENT: Pupils are reactive to light. Extraocular muscles are intact. NECK: She has no obvious jugular venous distention. There were no carotid bruits. LUNGS: On examination of the chest, lung pate sound clear, but breath sounds are somewhat distant. CARDIOVASCULAR: On cardiac exam, apical impulse not readily palpable. The first and second heart sounds were single. There were no audible murmurs as listened to in the Emergency Room. ABDOMEN: Protuberant, soft. No obvious organomegaly or masses. EXTREMITIES: She has 4+ pretibial and pedal edema bilaterally. Both legs are wrapped with circumferential gauze, presumably for ongoing treatment of her cellulitis and blistering. DIAGNOSTIC DATA: EKG is not readily available. Chest x-ray reported as no acute cardiopulmonary abnormality. Lower extremity venous ultrasonography does not reveal evidence for DVT. The most recent hemogram demonstrates a white cell count of 15,400, hemoglobin 12.4, hematocrit 36.3, MCV 104, platelet count 371,000. There are more than 90% neutrophils in the differential. Chemistry: Most recent lab data was at 1530 today. Glucose was 129, sodium 119, potassium 4.9, CO2 content 18, BUN 73, creatinine 2.86. Initial laboratory data demonstrated a creatinine of 3.22 and a BUN of 76. An albumin was 2.2 today. Total protein this morning was reported as 7.5. High sensitivity troponin is 67. Echocardiogram: The study is technically difficult because of her body habitus. Left ventricular systolic function appears to be normal with an ejection fraction of at least 60%. The aortic and mitral valve were also reasonably normal in appearance. ASSESSMENT: * Left lower leg foot and pretibial area discomfort, particularly when standing on her foot or when she is lying supine. Both pretibial areas and feet are very tender to palpation. There is clearly 4+ edema. There is also obvious cellulitis. The gauze bandages were not removed. Much of this patient's discomfort is probably due to not only her marked edema, but also the high-grade disease in multiple locations within her left superficial femoral artery and in particular total occlusion of the area surrounding the stent in her distal superficial femoral artery is noted, but collateral formation is also noted. She does not have intact high-quality infrapopliteal circulation according to the report from earlier today. * She has positive blood cultures, which I am guessing, they are being described as gram-negative rods and I am anticipating that they are going to be directly attributable to her cellulitis. * She has significant renal insufficiency, but much of this could be prerenal, particularly since creatinine has been coming down since placement on fluid hydration. * The patient describes herself as having prediabetes, but diabetes is diabetes and apparently has been present for a long time. * She is markedly overweight. * Ongoing cigarette smoking, which has been abated by Wellbutrin, but definitely not discontinued. * Other medical problems include hypertension and she has been taking Xarelto because of her peripheral vascular disease, the benefit of which is she does not have evidence for a deep vein thrombosis. PLAN: * The patient is scheduled to get an MRI virtually as this dictation is being made. The outcome of that may be quite informative. * This patient has had these symptoms for at least a week. It may be clearly in her best interest to have liberal hydration to bring down her renal numbers as much as possible before going ahead with any type of iodinated contrast angiography associated with reopening of her SFA. The patient does look as though her left ventricular function is up to the task of liberal fluids infusion. * The ultimate decision for the timing of intervention is based on hydration and the findings of her MRI, although I am somewhat doubtful that the MRI is going to show much more than what is currently known from her ultrasonography. Her current outpatient medicines will be continued. She is also receiving a heparin infusion. CHRISTY KING DO TID: [id number] RECEIPT: [id number] JARED
--- NOTE | 2025-03-03 22:48 | CONSULTATION ---
DATE OF CONSULTATION: 03/03/2025 DICTATING PHYSICIAN: Elie Miller MD RENAL AND INTENSIVE CARE CONSULTATION TIME: 11:00 a.m. CHIEF COMPLAINT: Acute kidney injury. HISTORY OF PRESENT ILLNESS: This 74-year-old woman comes in with leg infection of bilateral lower extremities. She is a large lady who looks fairly short of breath and fairly anxious. She has chronic swelling with wraps on both lower legs and these infections have gotten worse over the past week. She fell due to weakness landing on her buttocks. She has foul-smelling cellulitis of both lower extremities. ALLERGIES: PATIENT IS ALLERGIC TO CORN, PENICILLINS, SULFA, EGGS, AND WHEAT. MEDICATIONS: Only pertinent medication is amlodipine. PHYSICAL EXAMINATION: Blood pressure is 114/65 with respirations 16. There is no intake or output reported. LABORATORY AND DIAGNOSTIC DATA: She has macrocytosis of 103.6 with hematocrit 36; white count up to 19,000, down to 15,000; platelets 393,000. She has hyponatremia with sodium 118, potassium 5.4, chloride 88, bicarbonate 15, anion gap 15. Hemoglobin A1c was ordered, but she says she is not diabetic. Glucose was 168. Calcium is 8.4, lactate 1.5, phosphorus 7. Albumin is 2.5 with globulin 5.5, certainly on the high side. TSH is 0.75. Blood cultures are pending, but are negative so far. Chest x-ray is unremarkable except for a somewhat bulbous left ventricle extending out to the left chest margin, but no effusions. ASSESSMENT AND PLAN: I am not surprised at the hyponatremia, although she says she does not drink that much fluids. She does have hyponatremic hyperkalemic acidosis, and if the sodium were 21 higher, the chloride would be 107, so she actually has hyperchloremia as well as low salt. She has plenty of extravascular sodium chloride, so I would stop the IVs. You have done great with her potassium down to 4.5. Procalcitonin is 2.4. I would recommend CT abdomen and pelvis to look at her kidneys and bladder and bladder scan t.i.d. for the next couple of days to make sure she is voiding okay. We should get studies for urinary sodium, potassium for the dmitri site, creatinine and protein for the glomerulus, osmolality for the hyponatremia and put her on a 1.5-liter water restriction. We should first see if that is sufficient, but with her albumin that is low, we will have to see how much proteinuria she has. Depending upon the organism, either membranous from chronic skin infection, amyloid or poststreptococcal glomerulonephritis would all be considerations, so we should additionally send a specimen to the lab to be spun down for us to look at the sediment. I look forward to following her with you. Elie Miller MD TID: [id number] RECEIPT: [id number] HERMINIA/ALEXEY
[2025-03-03 23:18] LABS: CREATININE,URINE RANDOM 34.0 MG/DL; UA UREA RANDOM 339.0 MG/DL
[2025-03-03 23:23] LABS: LEUKOCYTE ESTERASE ,URINE SMALL (Neg); NITRITES, URINE NEGATIVE (Neg); OCCULT BLOOD,URINE SMALL (Neg)
[2025-03-03 23:27] LABS: UA COLLECTION TYPE VOIDED
[2025-03-03 23:29] LABS: OSMOLALITY UA 289.0 MOSM/K (50-1400)
[2025-03-03 23:30] LABS: SQUAMOUS EPITHELIAL CELL,UR FEW /LPF (FEW)
[2025-03-03 23:59] LABS: UA EOSINOPHILS NO EOS /HPF
[2025-03-04] VITALS (7 sets, daily range): BP systolic 100–122; BP diastolic 48–61; PULSE 52–88; RESP 16–19; TEMP 97.4–98.8; O2SAT 94–98
[2025-03-04 00:16] LABS: CREATININE 2.53 MG/DL (0.40-0.90); TOTAL CARBON DIOXIDE 19.8 MMOL/L (24-32); eCRCL 18 ML/MIN; eGFR 19 ML/MIN
--- NOTE | 2025-03-04 05:42 | CARDIOLOGY REPORT ---
APPROVED REPORT EXAM: Comprehensive 2D, Doppler, and color-flow Echocardiogram. Patient Location: ER 8 Blood Pressure: 101/62 mmHg Heart Rate: 90 bpm Rhythm: Sinus Rhythm Indications Myocardial Infarct Leg Infection Chronic Non-healing Left Leg Troponins (123) Sepsis MYRNA Information Systems Manager: None Previous echo: None 2D Dimensions RVDd 3.3 cm IVSd 1.2 (0.7-1.1cm) LVDd 4.3 cm PWd 1.2 (0.7-1.1cm) IVSs 1.8 (0.8-1.2cm) LVDs 2.4 (2.5-4.0cm) PWs 1.8 (0.8-1.2cm) LVOT Diameter 2.03 (1.8-2.4cm) LVEF(%) 76.7 (>50%) IVC 19.21 mm FS (%) 45.1 % SV 65.2 ml CO 5.8 L/min M-Mode Dimensions Left Atrium(MM) 4.39 (2.5-4.0cm) Aortic Root 3.04 (2.2-3.7cm) Aortic Cusp Exc 2.13 (1.5-2.0cm) Aortic Valve AoV Peak Nacho. 189.4 cm/s AoV VTI 32.0 cm AO Peak GR. 14.4 mmHg AO Mean GR. 7 mmHg LVOT VTI 34.84 cm LVOT Peak Nacho. 157.4 cm/s EVELIN(VTI)/BSA 3.51 cm2/m2 EVELIN (VTI) 3.51 cm2 AV DI 1.09 % Mitral Valve MV E Velocity 69.3 cm/s MV Peak Gr. 5 mmHg MV DECEL TIME 172 ms MV A Velocity 120.0 cm/s MV PHT 56 ms E/A Ratio 0.6 MVA (PHT) 3.93 cm2 MV VMax 108.1 cm/s Tricuspid Valve TR P. Velocity 200 cm/s RAP ESTIMATE 10 mmHg TR Peak Gr. 16 mmHg RVSP 26 mmHg LEFT VENTRICLE Normal LV size with hyperdynamic function. Resting LV gradient of 54 mmHg. Patient was unable to Valsalva due to pain. Mild concentric hypertrophy. LVEF is 70-75%. RIGHT VENTRICLE Right ventricle is mildly dilated with normal systolic function. Estimated PA systolic pressure is 26 mmHg. ATRIA Left atrium is mildly dilated. AORTIC VALVE Trileaflet AV appears sclerotic without stenosis or insufficiency. MITRAL VALVE Mild MV annular calcification without stenosis. Trace regurgitation. TRICUSPID VALVE TV appears structurally normal with trace regurgitation. PULMONIC VALVE Grossly normal PV without stenosis, physiologic insufficiency. GREAT VESSELS The aortic root is normal in size. IVC is normal in size and collapses less than 50% with inspiration. PERICARDIUM Normal pericardium. No pericardial effusion seen. Other Information Study Quality: Fair. TDS due to body habitus and inability to keep posistion during Echo. Conclusion Normal LV size with hyperdynamic function. Resting LV gradient of 54 mmHg. Patient was unable to Valsalva due to pain. Mild concentric hypertrophy. LVEF is 70-75%. Right ventricle is mildly dilated with normal systolic function. Estimated PA systolic pressure is 26 mmHg. Left atrium is mildly dilated. Trileaflet AV appears sclerotic without stenosis or insufficiency. Mild MV annular calcification without stenosis. Trace regurgitation. TV appears structurally normal with trace regurgitation. Normal pericardium. No pericardial effusion seen.
[2025-03-04 06:52] LABS: MEAN PLATELET VOLUME 7.5 FL (7.4-10.4); RED CELL DISTRIBUTION WIDTH 14.5 % (11.5-14.5)
[2025-03-04 06:58] LABS: CREATININE 2.24 MG/DL (0.40-0.90); TOTAL CARBON DIOXIDE 20.9 MMOL/L (24-32); eCRCL 20 ML/MIN; eGFR 21 ML/MIN
--- NOTE | 2025-03-04 09:04 | PROGRESS NOTE ---
Progress Note Dictate Providers to CC ~ Progress Note: Urine output is reported as 700 mL but I can not see if this is one shift or more. Sodium is coming up to 124 and pulses dropped from 113 to 53. I will check thyroids. She has Gram-negative rods in the blood, a mixture of probably contaminant in a 2nd blood culture, and positive wound culture for including Gram-negative rods. BUN and creatinine have improved slightly to 69 and 2.24. Spots studies urine to serum urea is 339/69 equals 5:1. Creatinine urine over serum is 34/2.24 equals 15:1, so urea clearance over creatinine clearance is 1/3 which is about normal since 2/3 of urea is resorbed as filtrate flows through the tubules. Unfortunately we did not get a spot urine protein to see if kidneys are the cause of her very low albumin of two. Spot urine sodium is 28 with potassium 33, so the aldosterone site is working fairly well but not maximally and urine osmolality is I saw the anuric to serum so basically the loop of Henle is taking a vacation. With her having this chronic infection proteinuria if present maybe due to membranous nephropathy, but the urinalysis is negative for protein. That leaves nutrition or liver as causes of the low albumin. Proteinuria also acts like a threshold phenomenon where the albumin gets low enough it may not spill over into the urine but that is unusual. The spot urine studies indicate that if we get the serum sodium up she will dump potassium and he will be able to stop the Lokelma. The kidneys look normal on ultrasound with good parenchyma and good corticomedullary differentiation. That would make this an acute renal injury so I would continue to bring the sodium up. I would definitely stop the metoprolol and your current antibiotics seem reasonable. Antibiotic Ordered?: Yes Objective Vitals Vital Signs Date Time Temp Pulse Resp B/P (MAP) Pulse Ox O2 Delivery O2 Flow Rate FiO2 03/04/25 06:00 98.1 52 18 118/61 (80) 96 Room Air 03/04/25 01:06 0.0 Lab Results: 03/04/25 0612 03/04/25 06 Coagulation Studies Laboratory Tests Test 03/03/25 14:24 03/03/25 17:55 Prothrombin Time 14.2 SECONDS (9.0-12.0) H INR International Normalized Ratio 1.4 INR Activated Partial Thromboplast Time > 139 SECONDS (22-32) *H APTT (Heparin Protocol) > 139 SECONDS (45-75) *H Coagulation Comments ERICA LOPEZ MD Mar 04, 2025 09:04
[2025-03-04] MEDS: cefepime inj. 0.5 GM in normal saline 100ml IV soln 105 ML IV SCH (09:12)
[2025-03-04] MEDS: metoprolol succinate 25mg (24-HOUR) SR. Tablet PO SCH (09:14)
--- NOTE | 2025-03-04 09:33 | PROGRESS NOTE- Residence ---
Progress Note - Resident Providers to CC Resident Creating Document: YARITZAEULALIAPIERRE MELGOZA ~ Antibiotic Timeout Antibiotic Ordered?: Yes Subjective Seen and examined the patient at bedside. She is improving with IV hydration and antibiotic. Still on the negative side of the fluid balance. Dr. Miller and Dr. Joseph on board Objective Vital Signs Date Time Temp Pulse Resp B/P (MAP) Pulse Ox O2 Delivery O2 Flow Rate FiO2 03/04/25 09:13 68 03/04/25 06:00 98.1 18 118/61 (80) 96 Room Air 03/04/25 01:06 0.0 Result Diagram: 03/04/25 0612 03/04/25 0612 General: Awake and Alert. Oriented to time place person. Not in acute distress HEENT: Conjunctiva pink, Sclera clear, Mucus Membranes dry Neck: Supple without masses and tenderness. Resp: Tachypneic. Diminished air movement bilaterally. Lungs clear to auscultation bilaterally. Heart: Regular Rate and rhythm, normal S1 and S2 without murmur, rub or gallop. Abdomen: Soft, distended, nontender, normal bowel sounds, no guarding or rebound, no organomegaly Extremities: 3+ pitting bilateral lower extremity edema. Distal pulses significantly decreased, possibly due to subcutaneous edema. Extensive leg ulcers covered with wound care dressing. Skin: Warm and dry. Neurologic: Awake, alert, and oriented. Normal speech. Cranial nerves IIXII intact. Strength 5/5 in all extremities, normal tone and reflexes, Babinski absent. Coordination intact on finger-nose testing Psychiatric: Affect and mood is normal Coagulation Studies Laboratory Tests Test 03/03/25 14:24 03/03/25 17:55 Prothrombin Time 14.2 SECONDS (9.0-12.0) H INR International Normalized Ratio 1.4 INR Activated Partial Thromboplast Time > 139 SECONDS (22-32) *H APTT (Heparin Protocol) > 139 SECONDS (45-75) *H Coagulation Comments Advance Care Planning Advanced Care plannin - 30 Minutes Plan Plan Sepsis secondary to bilateral lower extremity cellulitis About superimposed on chronic nonhealing ulcers Osteomyelitis ruled out MYRNA Possibly renal tubular stasis Severe hypokalemia Severe hypervolemic hyponatremia Hypochloremia Normal anion gap metabolic acidosis Type 2 MD Hypertension prediabetes Acute on chronic Peripheral arterial disease status post stenting for left lower extremity 4 years back Anxiety Depression Severe protein malnutrition Hypoalbuminemia Proteinuria Hyperlipidemia Vitals are stable today. Leukocytosis secondary to sepsis is improving with clindamycin, Zyvox, cefepime. Procalcitonin was elevated but lactic acid is normal. We consulted Dr. Kraus for acute on chronic peripheral arterial disease. He might have consulted Dr. Joseph for possible angiography procedure for lower extremity. Meanwhile patient is improving with hydration and the serum creatinine is going in the right direction MYRNA possibly secondary to Renal tubular stasis. Urine output seems to be 700 mL and sodium is coming up to 122. TSH is 0.75. She has Gram-negative rods in the blood along with Gram positive cocci but sensitivity pattern is still pending however patient is improving clinically with the current antibiotic regimen and we do not have any plans to change the antibiotic regimen. BUN and creatinine have improved slightly to 69 and 2.24. We we will continue clinda, Zyvox, cefepime. We will continue atorvastatin 40 mg, metoprolol 50 mg, aspirin 81 mg, amlodipine 10 mg. Continue to monitor BMP and sodium is improving. Patient seems to be getting angiography once renal functions are stabilized per Dr. Joseph. We held the rivaroxaban. Code status: Full code DVT prophylaxis: Heparin subQ Oh Correia M.D. IM resident, PGY 2 Date of Service: Mar 04, 2025 Billing Provider: MORENO BOCANEGRA DO Common Visit Codes: [id number] INP/OBS CARE(HIGH) OH CORREIA, RES Mar 04, 2025 09:33 MORENO BOCANEGRA DO Mar 04, 2025 17:14
[2025-03-04] MEDS ORDERED: BUPR-72 PO (10:14)
--- NOTE | 2025-03-04 13:04 | PROGRESS NOTE ---
Progress Note Cardiology Providers to CC ~ Subjective Subjective Not C/O much leg pain today Objective Result Diagram: 03/04/25 0612 03/04/25611 Objective Feet swelling looks less tense Renals continuing to improve WBCs are down frown admission Coagulation Studies Laboratory Tests Test 03/03/25 14:24 03/03/25 17:55 Prothrombin Time 14.2 SECONDS (9.0-12.0) H INR International Normalized Ratio 1.4 INR Activated Partial Thromboplast Time > 139 SECONDS (22-32) *H APTT (Heparin Protocol) > 139 SECONDS (45-75) *H Coagulation Comments Problem\Assessment\Plan Additional Plan Pt. has less sx. Plan: Continue hydration Lesions in the Left SFA to be addressed when hydration is optimal. CHRISTY KING DO Mar 04, 2025 13:04
[2025-03-04 16:36] LABS: CREATININE 1.99 MG/DL (0.40-0.90); TOTAL CARBON DIOXIDE 25.3 MMOL/L (24-32); eCRCL 22 ML/MIN; eGFR 24 ML/MIN
[2025-03-04] MEDS: heparin, porcine 5000 units/ml vial SQ SCH (22:43)
[2025-03-04 23:59] LABS: CREATININE 1.85 MG/DL (0.40-0.90); TOTAL CARBON DIOXIDE 23.6 MMOL/L (24-32); eCRCL 24 ML/MIN; eGFR 27 ML/MIN
[2025-03-05] MEDS ORDERED: vancomycin/NS 1 GM ADD-VANTAGE 250 ML IV SCH
[2025-03-05 06:00] VITALS: BP 124/49; PULSE 67; RESP 20; TEMP 97.6; O2SAT 96
[2025-03-05 06:46] LABS: MEAN PLATELET VOLUME 7.4 FL (7.4-10.4); RED CELL DISTRIBUTION WIDTH 14.6 % (11.5-14.5)
[2025-03-05 07:09] LABS: CREATININE 1.72 MG/DL (0.40-0.90); TOTAL CARBON DIOXIDE 24.8 MMOL/L (24-32); eCRCL 26 ML/MIN; eGFR 29 ML/MIN
[2025-03-05 08:00] VITALS: RESP 14; O2SAT 96
[2025-03-05 09:00] LABS: CREATININE 1.60 MG/DL (0.40-0.90); TOTAL CARBON DIOXIDE 23.8 MMOL/L (24-32); eCRCL 28 ML/MIN; eGFR 32 ML/MIN
[2025-03-05 10:00] VITALS: BP 143/55; PULSE 63; RESP 18; TEMP 97.7; O2SAT 96
--- NOTE | 2025-03-05 10:24 | PROGRESS NOTE ---
Progress Note Cardiology Providers to CC ~ Subjective Subjective legs feel better Pt about to walk with assist She told me today that she has not been having claudication Objective Result Diagram: 03/05/25 0619 03/05/25 0819 Objective Renal no's continue to improve in keeping with my notion that most of her problem is prerenal Rx for cellulitis and blood gnrs is excellent. She no longer has a leukocytosis Coagulation Studies Laboratory Tests Test 03/03/25 14:24 03/03/25 17:55 Prothrombin Time 14.2 SECONDS (9.0-12.0) H INR International Normalized Ratio 1.4 INR Activated Partial Thromboplast Time > 139 SECONDS (22-32) *H APTT (Heparin Protocol) > 139 SECONDS (45-75) *H Coagulation Comments Problem\Assessment\Plan Additional Plan ASS steady improvement No urgency at all about Left legt angios. PLAN Left leg angios/intervention only for delayed wound healing Rehab hosp before going home Wound correction health When discharged,I will follow this pt. as an outpatient CHRISTY KING DO Mar 05, 2025 10:24
--- NOTE | 2025-03-05 14:02 | PROGRESS NOTE ---
Progress Note Dictate Providers to CC ~ Progress Note: Shaneka appears quite well in his feeling comfortable. She still has a fair amount of leg edema and sodium is continuing at 1:24 a.m.. Urine os osmolality is 289, approximately equal to serum osmolality. Albumin is 1.9 and either pain meds, low albumin or fluid out in her legs maybe stimulating ADH. BUN is 54 with creatinine 1.6. Urine sodium is 28 with a potassium 33, so there is a fair bit of aldosterone site function. Overall, I suspect she has significant interstitial renal disease with decreased loop of Henle concentration or dilution and decreased aldosterone site function. I recommend put her on 1 g salt tablets 4 times a day she again asks what to do about dry mouth. Artificial saliva is pretty of noxious to take. I encouraged syed or lemon drops to try to deal with her saliva and restrict herself to no more than six cups a day of liquid. She has all of that is sitting on her bedside stand right now. Since she is quite comfortable at this sodium I would stay with the fluid restriction and not get more heroic such as natriuretic peptide antagonist, Declomycin or lithium. I am not confident she will stay with fluid restriction or the salt tablets, but that is the best we can do. I recommend she follow up with Nephrology in about a month. Antibiotic Ordered?: No Objective Vitals Vital Signs Date Time Temp Pulse Resp B/P (MAP) Pulse Ox O2 Delivery O2 Flow Rate FiO2 03/05/25 11:20 14 03/05/25 08:58 67 03/05/25 08:00 96 Room Air 0.0 03/05/25 06:00 97.6 124/49 (74) Lab Results: 03/05/25 0619 03/05/25 0819 Coagulation Studies Laboratory Tests Test 03/03/25 14:24 03/03/25 17:55 Prothrombin Time 14.2 SECONDS (9.0-12.0) H INR International Normalized Ratio 1.4 INR Activated Partial Thromboplast Time > 139 SECONDS (22-32) *H APTT (Heparin Protocol) > 139 SECONDS (45-75) *H Coagulation Comments ERICA LOPEZ MD Mar 05, 2025 14:02
--- NOTE | 2025-03-05 14:23 | RADIOLOGY REPORT ---
Procedure: [facility] Exam Date: 03/05/2025 12:00 PM. Clinical History: MYRNA Comparison Study: US ULTRASOUND KIDNEY NON VASC on DOS: 03/03/25 Nuclear Medicine Renal Scan with Lasix. Technique: Following the intravenous administration of 7.3 mCi of technetium 99m labeled MAG-3 , flow images were acquired in one second intervals. This was followed by functional imaging of the kidneys. Flow curves and functional renogram curves were generated. Split function data were generated from the first three minutes of the study. Findings: The flow study reveals prompt visualization of both kidneys with normal flow bilaterally. The kidneys are normal size, location and contour. The functional data was obtained with the renal pelvis included in the region of interest: Left: Peak time on the left is 12.5 minutes. Right: Peak time on the right is 12 minutes. Split function is 58.3 % on the left and 41.7 % on the right. IMPRESSION: 1. Significantly delayed peak time with slow excretion and imaging findings may be seen in the setting of acute kidney injury, poor hydration, medication effects, chronic kidney disease, acute tubular necrosis.
--- NOTE | 2025-03-05 15:52 | PROGRESS NOTE- Residence ---
Progress Note - Resident Providers to CC Resident Creating Document: AMARILISHAILEE ABDULLAHIPIERRE ESPINAL ~ Antibiotic Timeout Antibiotic Ordered?: Yes Subjective Seen and examined the patient at bedside. She is improving cellulitis with IV hydration and antibiotic and her kidneys are improving and better side today with the current management with IV fluids and antibiotics. Fluid balance is almost euvolemic. Objective Vital Signs Date Time Temp Pulse Resp B/P (MAP) Pulse Ox O2 Delivery O2 Flow Rate FiO2 03/05/25 11:20 14 03/05/25 10:00 97.7 63 143/55 (84) 96 Room Air 03/05/25 08:00 0.0 Result Diagram: 03/05/25 0619 03/05/25 08 General: Awake and Alert. Oriented to time place person. Not in acute distress HEENT: Conjunctiva pink, Sclera clear, Mucus Membranes dry Neck: Supple without masses and tenderness. Resp: Tachypneic. Diminished air movement bilaterally. Lungs clear to auscultation bilaterally. Heart: Regular Rate and rhythm, normal S1 and S2 without murmur, rub or gallop. Abdomen: Soft, distended, nontender, normal bowel sounds, no guarding or rebound, no organomegaly Extremities: 3+ pitting bilateral lower extremity edema. Distal pulses significantly decreased, possibly due to subcutaneous edema. Extensive leg ulcers covered with scab. Skin: Warm and dry. Neurologic: Awake, alert, and oriented. Normal speech. Cranial nerves IIXII intact. Strength 5/5 in all extremities, normal tone and reflexes, Babinski absent. Coordination intact on finger-nose testing Psychiatric: Affect and mood is normal Coagulation Studies Laboratory Tests Test 03/03/25 14:24 03/03/25 17:55 Prothrombin Time 14.2 SECONDS (9.0-12.0) H INR International Normalized Ratio 1.4 INR Activated Partial Thromboplast Time > 139 SECONDS (22-32) *H APTT (Heparin Protocol) > 139 SECONDS (45-75) *H Coagulation Comments Advance Care Planning Advanced Care plannin - 30 Minutes Plan Plan Sepsis secondary to bilateral lower extremity cellulitis, polymicrobial(MRSA, E coli, Klebsiella pneumoniae, Streptococcus mutans) Above superimposed on chronic nonhealing ulcers Osteomyelitis ruled out Vitals are stable. WBC counts are improved. We will continue cefepime, Zyvox and clindamycin MYRNA, improving Possibly renal tubular stasis Severe hypokalemia, improved Severe hypervolemic hyponatremia, improving Hypochloremia, improving Normal anion gap metabolic acidosis BUN is 54 with creatinine 1.6. Urine sodium is 28 with a potassium 33, Dr. Miller is on board . Even though patient's sodium is 124, she seems to be in good mentation Potassium is improved chloride is improved We will replace per protocol Dr. 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 Joseph spray painter - No urgency at all about Left legt angios. Left leg angios/intervention only for delayed wound healing. Rehab hosp before going home .[facility]ound [facility] Dr. JOSEPH will follow up the patient. We spoke with him regarding the intervention but he he informed us that patient need an acute intervention unless wounds are very slow to heal. We will continue the aspirin, atorvastatin, rivaroxaban, metoprolol Anxiety Depression We will continue home medications of bupropion Severe protein malnutrition Hypoalbuminemia Proteinuria On ensure and live p.o. t.i.d. Hyperlipidemia LDL is 61 We will continue Code status: Full code DVT prophylaxis: Rivaroxaban PT: Recommended for rehab Prognosis: Guarded Disposition: Patient may need to go to the rehab and probably need 2 weeks of antibiotics. We will Consult ID in the morning and we will discuss with case resource manager for placement. Outpatient follow up with munitions handler and Dr. JOSEPH spray painter Oh Correia M.D. IM resident, PGY 2 Date of Service: Mar 05, 2025 Billing Provider: MORENO BOCANEGRA DO Common Visit Codes: [id number] INP/OBS CARE(HIGH) OH CORREIA, RES Mar 05, 2025 15:52 MORENO BOCANEGRA DO Mar 05, 2025 16:46
[2025-03-05 16:39] LABS: CREATININE 1.71 MG/DL (0.40-0.90); TOTAL CARBON DIOXIDE 27.4 MMOL/L (24-32); eCRCL 26 ML/MIN; eGFR 29 ML/MIN
[2025-03-05] MEDS: buPROPion SR 150mg tablet PO SCH (17:26)
[2025-03-05 18:00] VITALS: BP 101/52; PULSE 77; RESP 16; TEMP 98; O2SAT 99
[2025-03-05] MEDS: lactose-reduced food (Ensure Enlive) - 237ml bottle PO SCH (18:00)
[2025-03-05 18:25] LABS: PHOSPHORUS 3.4 MG/DL (2.3-4.5)
--- NOTE | 2025-03-05 20:13 | PROGRESS NOTE ---
Progress Note ID Providers to CC ~ Progress Note Progress Note: Dr. Joseph managing pad-call if needed MONA ELIAS MD Mar 05, 2025 20:13
[2025-03-05 22:00] VITALS: BP 120/62; PULSE 64; RESP 13; TEMP 98.1; O2SAT 93
[2025-03-05 23:58] LABS: CREATININE 1.49 MG/DL (0.40-0.90); TOTAL CARBON DIOXIDE 23.6 MMOL/L (24-32); eCRCL 30 ML/MIN; eGFR 34 ML/MIN
[2025-03-06 05:49] LABS: MEAN PLATELET VOLUME 7.7 FL (7.4-10.4); RED CELL DISTRIBUTION WIDTH 14.8 % (11.5-14.5)
[2025-03-06 06:00] VITALS: BP 101/41; PULSE 67; RESP 13; TEMP 98.5; O2SAT 96
[2025-03-06 06:14] LABS: CREATININE 1.32 MG/DL (0.40-0.90); TOTAL CARBON DIOXIDE 23.2 MMOL/L (24-32); eCRCL 34 ML/MIN; eGFR 39 ML/MIN
[2025-03-06 06:47] VITALS: BP 101/41; PULSE 67; RESP 13; TEMP 98.5; O2SAT 96
[2025-03-06 10:00] VITALS: BP 104/53; PULSE 71; RESP 16; TEMP 97.9; O2SAT 95
[2025-03-06] MEDS: LidoCAINE 2% Topical Jelly 11mL syringe (UROJET) TOP ONE (11:09)
[2025-03-06 11:21] VITALS: RESP 14; O2SAT 95
--- NOTE | 2025-03-06 13:12 | PROGRESS NOTE- Residence ---
Progress Note - Resident Providers to CC Resident Creating Document: ALEJANDRINA LEVIN RES ~ Antibiotic Timeout Antibiotic Ordered?: No Subjective Patient was seen and examined at the bedside today. Continues to have bilateral lower extremity edema. Her sodium is stable. Started sodium chloride tablets 1 g 4 times daily. Potassium is in the normal range, held Lokelma. Patient is stable to be discharge from nephrology standpoint. BNP once a week for four weeks and follow up Nephrology in the outpatient. Objective Vital Signs Date Time Temp Pulse Resp B/P (MAP) Pulse Ox O2 Delivery O2 Flow Rate FiO2 03/06/25 11:21 14 95 Room Air 03/06/25 08:23 67 03/06/25 06:47 98.5 101/41 (61) 03/05/25 08:00 0.0 Result Diagram: 03/06/25 0459 03/06/25 0459 General: Awake and Alert, acute distress due to pain HEENT: Conjunctiva pink, Sclera clear, Mucus Membranes dry Neck: Supple without masses and tenderness. Resp: Bilateral lungs clear to auscultation. Heart: Regular Rate and rhythm, normal S1 and S2 without murmur, rub or gallop. Abdomen: Soft, distended, nontender, normal bowel sounds, no guarding or rebound, no organomegaly Extremities: 3+ pitting bilateral lower extremity edema. Extensive leg ulcers with copious purulent, malodorous greenish discharge, associated with marked erythema, warmth, and tenderness to palpation. Skin: Warm and dry. Neurologic: Awake, alert, and oriented. Normal speech. No focal nuerological deficits. Coagulation Studies Laboratory Tests Test 03/03/25 14:24 03/03/25 17:55 Prothrombin Time 14.2 SECONDS (9.0-12.0) H INR International Normalized Ratio 1.4 INR Activated Partial Thromboplast Time > 139 SECONDS (22-32) *H APTT (Heparin Protocol) > 139 SECONDS (45-75) *H Coagulation Comments Assessment Assessment Hyponatremia due to fluid intake, low albumin, CHF. Keep on salt tablets, 1.6 L/d fluid restrict. Nice lady, needs to work on weight reduction Plan Plan Assessment This is a 74-year-old female with a history of HTN, PAD, DM, chronic lymphedema, chronic nonhealing wound in the left leg came to ER with rapidly progressive pain, erythema, and purulent discharge in both lower extremities. Was admitted and being managed for cellulitis with positive blood cultures Nephrology team was consulted for acute kidney injury and severe hyponatremia. Labs at the time of admission showed creatinine of 3.23, BUN 78, sodium 119, potassium 6.0, bicarb 16.8. She was given 1.5 L bolus with NS@ 125 mL/hour. Recommended to stop iv fluids and maintain fluid restriction. Her sodium is improving and is stable at 127. Plan Severe hyponatremia Hyperkalemia Non-anion gap metabolic acidosis MYRNA Sodium levels slowly improving, 127 today. Potassium is maintaining at 4.2 Bicarb is 23.2. Creatinine is 1.32, BUN is 48, BUN/creatinine is 36.4 Urine output is 0.71 mL per kg per hour, total urine output 1850ml Renal NM scan showed delayed peak time with slow excretion. Plan Started on salt tablets 1 g q.i.d.. Held Lokelma. Continue fluid restriction to less than 1.2 L per day We will continue to monitor the electrolytes daily while she is here. Patient is okay to be discharged from Nephrology standpoint. Needs a weekly BMP for four weeks and follow up with outpatient Nephrology. Sepsis secondary to bilateral lower extremity cellulitis. On cefepime, Zyvox, clindamycin. PAD On aspirin, atorvastatin, rivaroxaban, metoprolol. Dr. Joseph will follow the patient outpatient Type 2 NV Hypertension Prediabetes Severe protein malnutrition, hypoalbuminemia A1c 6.4 On ensure p.o. t.i.d.. Alejandrina Levin M.D PGY2 Nephrology Resident. Date of Service: Mar 06, 2025 Billing Provider: ERICA LOPEZ MD, PRAVAHIKA, RES Mar 06, 2025 13:12 ERICA LOPEZ MD Mar 06, 2025 23:44
--- NOTE | 2025-03-06 16:13 | DISCHARGE SUMMARY-Residence ---
Discharge Summary Providers to CC Resident Creating Document: MIHIR LITTLE JENNA, RES ~ Discharge Summary Admission Diagnosis: SEPSIS DUE TO CELLULITIS Hospital Course DATE OF ADMISSION: 03/03/2025 DATE OF DISCHARGE: 03/06/2025 Discharge Diagnosis\Comment: Sepsis secondary to bilateral lower extremity cellulitis, polymicrobial(MRSA, E coli,Streptococcus mutans) positive blood cultures Acute on chronic nonhealing arterial ulcers with necrotic scab MYRNA secondary to renal tubular stasis Severe hypokalemia, improved Severe hypervolemic hyponatremia, improving Hypochloremia, improving Normal anion gap metabolic acidosis Type 2 HI Hypertension Prediabetes Acute on chronic Peripheral arterial disease s/p stent placement Occlusion of left lower extremity stent Anxiety Depression Severe protein malnutrition Hypoalbuminemia Hyperlipidemia Operations\Procedures: Local Wound debridement by wound care nurse Consultants: Dr. Joseph, Dr. Kraus Complications: None Condition on DC: Stable for transfer Discharge Summary: History of presenting illness: This is a 74-year-old female who presents to the ER with rapidly progressive pain, erythema, and purulent discharge in both lower extremities. She has a hist ory of chronic nonhealing leg ulcers that were previously small in size. However, over the past few weeks, these ulcers have increased substantially in size, and during the last week have become associated with purulent, malodorous greenish discharge, severe tenderness to palpation, intermittent claudication, and redness extending from the dorsal feet up to the knees. She denies fever, chills, nausea, or vomiting, but reports weakness, poor oral intake, and decreased urine output. No chest pain or respiratory symptoms are reported. Hospital course: This is a 74-year-old female admitted for sepsis secondary to bilateral lower extremity cellulitis. But blood cultures were positive for MRSA, E coli and Streptococcus mutans. MRI ruled out osteomyelitis of the left lower extremity. Patient also had acute kidney injury with a up trending creatinine, hyponatremia managed with salt tablets, and hypokalemia which were replaced per protocol. However she did not have any signs of altered level of consciousness. Patient also had slight elevation in troponin was initially started on heparin drip which was discontinued after 24 hours. An arterial ultrasound of the left lower extremity showed occlusion of the left superior femoral artery with collaterals in the inferior popliteal artery. However patient did not have any signs of acute limb ischemia including loss of pulse, cold feet. Dr. Joseph was consulted who recommended to continue aspirin, atorvastatin, rivaroxaban. Patient was hemodynamically stable at the time of discharge and was discharged with outpatient antibiotics Infectious diseases recommendations including Zyvox 600 mg q.12 hours and Levaquin 100 mg p.o. daily for 10 days Physical examination at discharge: General: Awake and Alert. Oriented to time place person. Not in acute distress HEENT: Conjunctiva pink, Sclera clear, Mucus Membranes dry Neck: Supple without masses and tenderness. Resp:Lungs clear to auscultation bilaterally. Heart: Regular Rate and rhythm, normal S1 and S2 without murmur, rub or gallop. Abdomen: Soft, distended, nontender, normal bowel sounds, no guarding or rebou nd, no organomegaly Extremities: 3+ pitting bilateral lower extremity edema. Distal pulses significantly decreased, possibly due to subcutaneous edema. Extensive leg ulcers covered with necrotic scab. Skin: Warm and dry. Neurologic: Awake, alert, and oriented. Normal speech. Cranial nerves IIXII intact. Strength 5/5 in all extremities, normal tone and reflexes, Babinski absent. Coordination intact on finger-nose testing Psychiatric: Affect and mood is normal Vital Signs Date Time Temp Pulse Resp B/P (MAP) Pulse Ox O2 Delivery O2 Flow Rate FiO2 03/06/25 11:21 14 95 Room Air 03/06/25 10:00 97.9 71 104/53 (70) 03/05/25 08:00 0.0 Laboratory Tests Test 03/04/25 16:17 03/04/25 23:42 03/05/25 06:19 03/05/25 08:19 Sodium Level 122 MMOL/L 124 MMOL/L 124 MMOL/L 122 MMOL/L Potassium Level 4.4 MMOL/L 4.5 MMOL/L 4.3 MMOL/L 4.2 MMOL/L Chloride Level 90 MMOL/L 90 MMOL/L 91 MMOL/L 90 MMOL/L Carbon Dioxide Level 25.3 MMOL/L 23.6 MMOL/L 24.8 MMOL/L 23.8 MMOL/L Anion Gap 7 10 8 8 Blood Urea Nitrogen 60 MG/DL 62 MG/DL 57 MG/DL 54 MG/DL Creatinine 1.99 MG/DL 1.85 MG/DL 1.72 MG/DL 1.60 MG/DL Estimated GFR/1.73 m2 24 ML/MIN 27 ML/MIN 29 ML/MIN 32 ML/MIN BUN/Creatinine Ratio 30.2 33.5 33.1 33.8 Glucose Level 125 MG/DL 120 MG/DL 94 MG/DL 97 MG/DL Calcium Level 8.3 MG/DL 8.4 MG/DL 8.5 MG/DL 8.3 MG/DL Albumin 1.9 G/DL 2.0 G/DL 1.9 G/DL 1.9 G/DL Chemistry Comments White Blood Count 8.1 X10'3 Red Blood Count 3.19 X10'6 Hemoglobin 11.4 g/dl Hematocrit 33.0 % Mean Corpuscular Volume 103.4 FL Mean Corpuscular Hemoglobin 35.8 PG Mean Corpuscular Hemoglobin Concent 34.6 g/dL Red Cell Distribution Width 14.6 % Platelet Count 381 X10'3 Mean Platelet Volume 7.4 FL Hematology Comments Test 03/05/25 15:56 03/05/25 23:41 03/06/25 04:59 Sodium Level 126 MMOL/L 125 MMOL/L 127 MMOL/L Potassium Level 4.5 MMOL/L 4.5 MMOL/L 4.2 MMOL/L Chloride Level 90 MMOL/L 93 MMOL/L 94 MMOL/L Carbon Dioxide Level 27.4 MMOL/L 23.6 MMOL/L 23.2 MMOL/L Anion Gap 9 8 10 Blood Urea Nitrogen 53 MG/DL 54 MG/DL 48 MG/DL Creatinine 1.71 MG/DL 1.49 MG/DL 1.32 MG/DL Estimated GFR/1.73 m2 29 ML/MIN 34 ML/MIN 39 ML/MIN BUN/Creatinine Ratio 31.0 36.2 36.4 Glucose Level 100 MG/DL 113 MG/DL 89 MG/DL Calcium Level 8.6 MG/DL 8.5 MG/DL 8.4 MG/DL Phosphorus Level 3.4 MG/DL Magnesium Level 1.8 MG/DL Albumin 2.0 G/DL 2.0 G/DL 1.9 G/DL Chemistry Comments White Blood Count 8.2 X10'3 Red Blood Count 3.10 X10'6 Hemoglobin 10.8 g/dl Hematocrit 32.1 % Mean Corpuscular Volume 103.7 FL Mean Corpuscular Hemoglobin 34.8 PG Mean Corpuscular Hemoglobin Concent 33.5 g/dL Red Cell Distribution Width 14.8 % Platelet Count 370 X10'3 Mean Platelet Volume 7.7 FL Hematology Comments Imaging: Arterial ultrasound of left leg: Monophasic throughout bilaterally. Left RELIEF PILOT waveform boarderline monophasic. Bilateral RELIEF PILOT, Right SFA elevated velocity. Indicating possible inflow disease. Left SFA Prox 50-79% stenosis. Left SFA mid >80% stenosis. Left SFA distal stent visualized, no flow seen throughout Left SFA distal or Proximal Pop. Distal Pop recannalized via collaterals. Bilateral NU, Peroneal, Left DPA not vis due to wounds and dressing. No LYRIC due to pain and wounds. Echocardiogram: Normal LV size with hyperdynamic function. Resting LV gradient of 54 mmHg. Patient was unable to Valsalva due to pain. Mild concentric hypertrophy. LVEF is 70-75%. Right ventricle is mildly dilated with normal systolic function. Estimated PA systolic pressure is 26 mmHg. Left atrium is mildly dilated. Trileaflet AV appears sclerotic without stenosis or insufficiency. Mild MV annular calcification without stenosis. Trace regurgitation. TV appears structurally normal with trace regurgitation. Normal pericardium. No pericardial effusion seen. MRI of left le. No MR evidence of osteomyelitis. 2. Surrounding subcutaneous adipose tissue edema and skin thickening. 3. No joint effusion. Renal ultrasound: Normal sonographic appearance of the kidneys. No hydronephrosis. Venous ultrasound: No sonographic evidence of deep vein thrombosis to bilateral lower extremity. Normal compressible veins with respirophasic flow and good augmentation througho ut bilateral leg. Renal NM scan: Significantly delayed peak time with slow excretion and imaging findings may be seen in the setting of acute kidney injury, poor hydration, medication effects, chronic kidney disease, acute tubular necrosis. Discharge instructions: Follow up with your PCP, electric arc welder Dr. Joseph in week. Continue antibiotics for 10 more days Zyvox and Levaquin. Follow up with specification manager outpatient with CMP monitoring weekly until sodium and potassium improve. Continue following with [facility]. Daily dressing while on rehab. Continue anticoagulation without interruption. Strongly advised smoking cessation. Return to the ER if you have worsening redness, pain, swelling in the low-flow. *Problems/Diagnosis: (1) Cellulitis and abscess of left lower extremity (2) Weakness Status: Acute Total Time Spent on D/C: > 30 Minutes Date of Service: Mar 06, 2025 Billing Provider: SANDRA AGUIRRE MD Common Visit Codes: 55599-[id number] DISCH DAY >30min MIHIR LITTLE RES Mar 06, 2025 15:39 SANDRA AGUIRRE MD Mar 07, 2025 15:25
[2025-03-06] MEDS ORDERED: JUVEN Smoothie Arginine/Glut./Ca2+Bmb (Juven 19.3pkt) 240ml cup PO SCH (17:30)
[2025-03-08] MEDS ORDERED: VANCOMYCIN LEVEL IV ONE (23:30)
== END 2025-03-06 17:00 | DRG 871 ==
LOC: ER 21:21 → ED HOLD 03-03 02:06 → EDBEDREQ 03-03 19:26 → ORTHO 4S 03-03 21:25
PROVIDERS: ADMIT Internal Medicine Critical Care Medicine; ATTEND Family Medicine
PROC: CT131ZZ Planar Nuclear Medicine Imaging of Kidneys, Ureters and Bladder using Technetium 99m (Tc-99m) (ICD-10-PCS; principal; 2025-03-05)
DX: A41.51 Sepsis due to Escherichia coli [E. coli] (principal); E43 Unspecified severe protein-calorie malnutrition; I21.A1 Myocardial infarction type 2; N17.0 Acute kidney failure with tubular necrosis; L03.116 Cellulitis of left lower limb; L03.115 Cellulitis of right lower limb; E87.1 Hypo-osmolality and hyponatremia; L97.828 Non-pressure chronic ulcer of other part of left lower leg with other specified severity; L97.818 Non-pressure chronic ulcer of other part of right lower leg with other specified severity; E87.5 Hyperkalemia; F41.9 Anxiety disorder, unspecified; E11.51 Type 2 diabetes mellitus with diabetic peripheral angiopathy without gangrene; I10 Essential (primary) hypertension; F17.210 Nicotine dependence, cigarettes, uncomplicated; E87.8 Other disorders of electrolyte and fluid balance, not elsewhere classified; F32.A Depression, unspecified; E88.09 Other disorders of plasma-protein metabolism, not elsewhere classified; E78.5 Hyperlipidemia, unspecified; B96.1 Klebsiella pneumoniae [K. pneumoniae] as the cause of diseases classified elsewhere; B95.4 Other streptococcus as the cause of diseases classified elsewhere; E11.622 Type 2 diabetes mellitus with other skin ulcer; Z22.322 Carrier or suspected carrier of Methicillin resistant Staphylococcus aureus; Z79.899 Other long term (current) drug therapy; Z88.0 Allergy status to penicillin; Z88.2 Allergy status to sulfonamides; Z88.8 Allergy status to other drugs, medicaments and biological substances; Z68.39 Body mass index [BMI] 39.0-39.9, adult
CPT/HCPCS: 36415; 71045; 73721; 76770; 78707; 80048; 80053; 80061; 80076; 81001; 82550; 82570; 82607; 83036; 83605; 83735; 83880; 83930; 83935; 84100; 84132; 84133; 84145; 84300; 84443; 84484; 84540; 85025; 85027; 85610; 85651; 85730; 87040; 87077; 87081; 87088; 87186; 87207; 93005; 93306; 93925; 93970; 96365; 97116; 97161; 97530; 99285; A6154; A6209; A6213; A6222; A6223; A6250; A6253; A6258; A6446; A6449; A9562; G0378; J0692; J0744; J1644; J1938; J2020; J2270; J2405; J3373; J3490; J7030; J7040

== ENCOUNTER → 2025-03-12 | Emergency (ER) | payer MEDICARE ==
[~2025-03-12] VITALS: Ht 170.2 cm; Wt 112.0 kg
[~2025-03-12] MED LIST changes: +AMLO10TA13 PO; +BUPR-72 PO; +METO-384 PO; +RIVA20TA PO
[2025-03-12 04:49] LABS: MEAN PLATELET VOLUME 7.1 FL (7.4-10.4); RED CELL DISTRIBUTION WIDTH 15.2 % (11.5-14.5)
[2025-03-12 05:04] LABS: CREATININE 1.04 MG/DL (0.40-0.90); TOTAL CARBON DIOXIDE 30.2 MMOL/L (24-32); eCRCL 46 ML/MIN; eGFR 52 ML/MIN
--- NOTE | 2025-03-12 05:30 | Physician Documentation ---
History of Present Illness ~ Chief Complaint: Leg Pain Stated Complaint: ABNORMAL LABS/WOUNDS Time Seen by MD: 04:14 Primary Medical Doctor: NONE Mode of Arrival: EMS, Stretcher HPI 74 year old female sent by [facility] for H/H check. She is being treated for bilateral lower extremity cellulitis and during bandage changes she is bleeding. She is taking a DOAC. She denies weakness, LOC. Tetanus witin 5 years: Yes Medication Reconciliation Allergies: Coded Allergies: corn (Verified Allergy, Mild, 03/12/25) Penicillins (Verified Allergy, Unknown, 03/12/25) Sulfa (Sulfonamide Antibiotics) (Verified Allergy, Unknown, 03/12/25) Uncoded Allergies: EGGS (Allergy, Mild, 10/07/09) WHEAT (Allergy, Mild, 10/07/09) Scheduled Amlodipine Besylate (Amlodipine Besylate), 1 TABLET PO DAILY Amlodipine Besylate (Amlodipine Besylate), 1 TAB PO DAILY, (Reported) Bupropion HCl (Bupropion HCl Sr), 1 TAB PO DAILY, (Reported) Metoprolol Succinate (Metoprolol Succinate), 1 TAB PO DAILY, (Reported) Rivaroxaban (Xarelto), 1 TAB PO DAILY, (Reported) Past Medical History Past Medical History: Anxiety Past Surgical History: no surgical history Alcohol Use: Heavy Drug Use: none Lives with: Alone Lives In: Home Occupation: employed, retired Review of Systems All Other Systems at this time: Reviewed and Negative Physical Exam Vital Signs: RN Vital Signs have been reviewed: Yes, Heart Rate: 73, Respiratory Rate: 14, BP: 119/67, Pulse Oximetry: 96, Weight: 112.000 Physical Exam HEENT: PERRL, moist oral mucosa, EOMI Pulmonary: No respiratory distress MSK: no deformity; BLE with compression dressings to lower legs Skin: w/d/i, no rash Neuro: alert, nonfocal Psych: normal affect Progress Results/Orders Results/Orders Completed Orders - JASPER MEJIA MD Cbc/Diff (03/12/25 04:15) CMP (03/12/25 04:15) Vital Signs 03/12/25 03/12/25 03/12/25 04:13 04:19 04:23 Pulse 65 73 Resp 18 16 14 B/P (MAP) 125/52 119/67 (84) Pulse Ox 98 96 Laboratory Tests Test 03/12/25 04:35 White Blood Count 7.6 Red Blood Count 3.06 L Hemoglobin 10.8 L Hematocrit 32.3 L Mean Corpuscular Volume 105.5 H Mean Corpuscular Hemoglobin 35.2 H Mean Corpuscular Hemoglobin Concent 33.3 Red Cell Distribution Width 15.2 H Platelet Count 338 Mean Platelet Volume 7.1 L Neutrophils (%) (Auto) 80.5 H Lymphocytes (%) (Auto) 10.4 L Monocytes (%) (Auto) 6.5 Eosinophils (%) (Auto) 1.6 Basophils (%) (Auto) 1.0 Neutrophils # (Auto) 6.1 Lymphocytes # (Auto) 0.8 L Monocytes # (Auto) 0.5 Eosinophils # (Auto) 0.1 Basophils # (Auto) 0.1 CBC Comment Sodium Level 134 L Potassium Level 4.2 Chloride Level 99 Carbon Dioxide Level 30.2 Anion Gap 5 L Blood Urea Nitrogen 11 Creatinine 1.04 H Estimated GFR/1.73 m2 52 BUN/Creatinine Ratio 10.6 Glucose Level 97 Calcium Level 8.0 L Total Bilirubin 0.3 Aspartate Amino Transf (AST/SGOT) 23 Alanine Aminotransferase (ALT/SGPT) 43 Alkaline Phosphatase 100 Total Protein 6.3 L Albumin 1.9 L Globulin 4.4 H Albumin/Globulin Ratio 0.4 L Chemistry Comments Medical Decision Making Additional information obtaine: N/A Findings 74 year old female with bleeding wounds to BLE. H/H were stable with prior values. Will discharge to follow up with [facility]. General Diff Dx:Considerations: Include: Other Knee Diff Dx:Considerations: Include: Other Ankle Diff Dx:Considerations: Include: Other Foot Diff Dx:Considerations: Include: Other Toe Diff Dx:Considerations: Include: Other Additional Comment Ddx includes anemia, active bleeding, cellulitis Departure Disposition: 01 HOME / SELF CARE / HOMELESS Impression: Primary Impression: Bleeding Discharge Instructions: Cellulitis, Adult Referrals: NO PRIMARY CARE PROVIDER (PCP) Education Educated: Patient Educated regarding: diagnosis, treatment, prognosis, need for follow up Signature Scribe Signature: . Attestation: . JASPER MEJIA MD Mar 12, 2025 05:30
[2025-03-12 09:45] VITALS: BP 108/61; PULSE 66; RESP 16; O2SAT 95
== END | disposition home or self-care (01) ==
LOC: ER 04:08
DX: R58 Hemorrhage, not elsewhere classified (principal); L03.116 Cellulitis of left lower limb; L03.115 Cellulitis of right lower limb; F41.9 Anxiety disorder, unspecified; F10.90 Alcohol use, unspecified, uncomplicated; Z91.018 Allergy to other foods; Z88.0 Allergy status to penicillin; Z88.2 Allergy status to sulfonamides; Z79.899 Other long term (current) drug therapy; Z60.2 Problems related to living alone; Y90.9 Presence of alcohol in blood, level not specified
CPT/HCPCS: 36415; 80053; 85025; 99285; A6258; A6402; A6446; A6449

== ENCOUNTER 2025-05-14 08:37 | Emergency (ER) | payer MEDICARE ==
[~2025-05-14] VITALS: Ht 172.7 cm; Wt 96.0 kg
[~2025-05-14 08:37] MED LIST changes: +ACET-1008 PO; +ALB0.5UD IH; -AMLO5TAB PO; +ASPI-1265 PO; +ATOR40TA PO; +ATR0.5NEB IH; +BACL10TA2 PO; +BISA10SU60 RC; +CETI10TA19 PO; +DOCU-148 PO; +FERR-119 PO; +FURO20TA4 PO; +HYDR-3973 PO; +LACT1CAP65 PO; +LIDO5CRE26 TOP; +LORA-268 PO; +MAG-150 PO; +MAGN400O6 PO; +MICO14CR6 TOP; +MULT-1074 PO; +NA P230E PR; +NUTR1PAC9 PO; +ONDA-243 PO; +SENN-360 PO; +SODI1TAB2 PO
--- NOTE | 2025-05-14 08:58 | Physician Documentation ---
Addendum CHIEF COMPLAINT/HPI: The patient is a 74-year-old female with a history of CHF with preserved ejec tion fraction, COPD on 2 L of oxygen at baseline, PAD s/p femoral popliteal artery bypass by Dr. Kraus on 03/29/25 (on Xarelto), chronic lower extremity wound, lymphedema who noticed a painless area of swelling over the surgical site two days ago. She has no pain or numbness. Operative record from 03/29/2025 indicates that the saphenous vein was harvested from the right side, femoral popliteal bypass was on the left side. REVIEW OF SYSTEMS: Constitutional: Denies chills, fatigue, fever, weight gain or weight loss. HEENT: Denies hearing loss, sinus pressure or visual changes. Respiratory: Denies cough, shortness of breath or wheezing. Cardiovascular: Denies chest pain, pain while walking (claudication), edema or palpitations. Gastrointestinal: Denies abdominal pain, blood in stool, constipation, diarrhea, heartburn, loss of appetite, nausea or vomiting. Genitourinary: Denies painful urination (dysuria), excessive amount of urine (polyuria) or urinary frequency. Metabolic/Endocrine: Denies cold intolerance, heat intolerance, excessive thirst (polydipsia) or excessive hunger (polyphagia). Neurological: Denies dizziness, extremity numbness, extremity weakness, headaches, seizures or tremors. Psychiatric: Denies anxiety or depression. Integumentary: Denies breast discharge, breast lump, hives, mole change(s), rash or skin lesion. Musculoskeletal: Denies back pain, joint pain, joint swelling or neck pain. Hematologic: Denies easily bleeding, easily bruises, lymphedema or issues with blood clots. Immunologic: Denies food allergies or seasonal allergies. PHYSICAL EXAMINATION: Vitals and nursing note reviewed. Constitutional: General: Patient is awake, alert, oriented x 4 in no acute distress and well appearing. Speech is clear and lucid. Appearance: Normal appearance. Patient is not ill-appearing, toxic-appearing or diaphoretic. Cardiovascular: Rate and Rhythm: Normal rate and regular rhythm. Heart sounds: No murmur heard. Pulmonary: Effort: No respiratory distress. Breath sounds: No wheezing, rhonchi or rales. Abdominal: General: There is no distension. Palpations: There is no fluid wave, hepatomegaly or mass. Tenderness: There is no abdominal tenderness. There is no guarding. Musculoskeletal: General: There is a firm area of swelling 5-7 cm in diameter over the surgical site, right lower extremity. The remainder of the extremity is warm. No pulsations were noted. Skin: Coloration: Skin is not jaundiced. Findings: No erythema or rash. Neurological: Mental Status: Patient is alert. MEDICAL DECISION MAKING: Vascular study of the right side reveals a likely seroma or hematoma. At this time there are no findings to suggest infection. The patient is on Xarelto. I am going to apply an Howard bandage in have her follow-up with her surgeon. Departure Disposition: HOME / SELF CARE / HOMELESS Impression: Primary Impression: Seroma complicating a procedure Condition: Stable Additional Instructions: Please phoned Dr. Kraus's office tomorrow and let them know that you were seen here today and have a seroma in your right thigh. MARCELLUS ADAMS MD May 14, 2025 08:58
[2025-05-14 09:42] LABS: MEAN PLATELET VOLUME 7.7 FL (7.4-10.4); RED CELL DISTRIBUTION WIDTH 19.1 % (11.5-14.5)
[2025-05-14 09:49] LABS: INR 1.4 INR
[2025-05-14 09:55] LABS: CREATININE 1.19 MG/DL (0.40-0.90); TOTAL CARBON DIOXIDE 33.7 MMOL/L (24-32); eCRCL 42 ML/MIN; eGFR 44 ML/MIN
[2025-05-14 10:34] LABS: PLATELET ESTIMATE INCREASED
--- NOTE | 2025-05-14 11:20 | VASCULAR REPORT ---
BILATERAL Lower Extremity Arterial Duplex Date: 05/14/2025 09:32 AM CLINICAL HISTORY: pad COMPARISON: CT CTA LOWER EXTREMITY on DOS: 03/28/25, VASC VL ARTERIAL on DOS: 03/03/25, VL ARTERIAL on DOS: 09/24/21 TECHNIQUE: Duplex Doppler evaluation including color Doppler and spectral/pulsed waveform analysis of the lower extremity arteries was performed. Surgery/Intervention Bypass Graft 1 : Date : 03/2025 Site : Left femoral-popliteal VELOCITY AND DOPPLER WAVEFORM ANALYSIS RIGHT cm/se Waveform Severity LEFT cm/se Waveform Severity c c dCFA 127.2 Multiphasic dCFA Prof Fem 166.0 Multiphasic Prof Fem Art. Art. Fem Art 125.0 Multiphasic Fem Art Prox. Prox. Fem Art 114.0 Multiphasic Fem Art Mid Mid. Fem Art 95.0 Multiphasic Fem Art Dist Dist. Pop Art(AK) 88.0 Multiphasic Pop Art(AK) Pop Art(BK) 90.0 Multiphasic Pop Art(BK) EARLY CHILDHOOD WORKER Dist. 70.0 Multiphasic EARLY CHILDHOOD WORKER Dist. Per Art Dist. 93.0 Multiphasic Per Art Dist. NU Dist. 98.0 Multiphasic NU Dist. CONCLUSION No pseudoaneurysm visualized in the right groin. No evidence for a hemodynamically significant stenosis or occlusion visualized in the right lower extremity. Multiphasic flow is visualized throughout the right lower extremity. Incidental finding: Anechoic structure visualized in the right medial thigh, possible seroma, measuring 5.3 cm x 5.8 cm in transverse. Unable to measure visualized structure in sagittal plane due to its size, possible seroma appears to extend throughout the right thigh. Of note, visualized structure is in the area where the right great saphenous vein was harvested for use in the left lower extremity bypass graft.
[2025-05-14 11:36] VITALS: BP 111/58; PULSE 85; RESP 20; TEMP 97.9; O2SAT 97
== END 2025-05-14 11:53 | disposition home or self-care (01) ==
LOC: ER 08:38
DX: M96.843 Postprocedural seroma of a musculoskeletal structure following other procedure (principal); I50.32 Chronic diastolic (congestive) heart failure; J44.9 Chronic obstructive pulmonary disease, unspecified; Z79.01 Long term (current) use of anticoagulants
CPT/HCPCS: 36415; 80048; 83605; 83735; 85008; 85025; 85610; 86140; 93926; 99284; J7030; J7050